=== PATIENT | male | born 1955 | race Caucasian/White ===

== ENCOUNTER 2018-04-16 08:17 | Inpatient (IN) | payer OTHER, SELFPAY ==
[2018-04-12 09:48] VITALS: BMI 32.2
[2018-04-16] VITALS (16 sets, daily range): BP systolic 115–143; BP diastolic 66–87; PULSE 62–80; RESP 10–20; TEMP 36.3–36.6; O2SAT 93–99; BMI 31.5; BMI 30.8
[2018-04-16] MEDS: LACTATED RINGERS 1,000 ML 42 ML IV ×3 (09:17→14:43)
[2018-04-16] MEDS: VANCOMYCIN 1,000 MG/200 ML FROZ.PIGGY 200 MG IV (09:19)
--- NOTE | 2018-04-16 09:26 | PM.PREOP ---
Pre-operative Note Interval Note History & Physical reviewed/Exam performed by Physician: Yes Changes to H&P: No
[2018-04-16] MEDS: CEFAZOLIN 2 GM/100 ML FROZ.PIGGY IV ×2 (10:25→21:25)
--- NOTE | 2018-04-16 10:28 | P.OP_ITS ---
Operative Date/Time/Diagnoses Date of procedure: 04/16/18 Time of procedure: 15:48 Pre-op diagnosis: Lumbar stenosis with radiculopathy history of lumbar laminectomy lumbar scoliosis Post-op diagnosis: same Procedure & Clinicians Procedure: L2-3, L3-4, L4-5 anterior fusion with cages L2-3, L3-4, L4-5 posterior fusion L2, L3, L4, L5 screws iliac crest bone graft aspirate L2-3, L4-5 laminectomies L3-4 revision laminectomy use of microscope placement of epidural catheter Same procedure as scheduled: Yes Indications: 62 year old male with intractable pain from stenosis. They had failed conservative management and requested operative intervention. Risks and benefits of surgery were discussed and appropriate consents were obtained. Surgeon: Michael Garcia Biomedical Instrument Technician: Aida Coelho Anesthesia Type: General Operative Notes Findings: none Closure Type: primary Specimen(s): none sent Prosthetic devices, grafts, tissues, transplants, or devices: NuVasive MAS and open Reline screws NuVasive XLIF screws Applied: catheter Estimated Blood Loss (mL): 50 Blood products transfused: none Procedure in detail: Patient was brought to the operating room and intubated on the table. Time-out was performed. They were then rolled over to the lateral decubitus position with the [id number]. The table was bent and they were taped down in the correct position. X-rays were taken to confirm a true AP and lateral. Preoperative antibiotics were given. The left flank was prepped and draped in standard sterile fashion. Using fluoroscopy, a 3 cm incision was made above the iliac crest. We bluntly dissected down with Metzenbaum scissors and split the 3 abdominal muscle layers. We dissected out the retroperitoneal space and using finger guidance, brought our 1st dilator down to the psoas muscle. Using neuromonitoring and fluoroscopy, we placed it through the psoas onto the L45 disc space in an anterior position and gradually pulled the dilator posteriorly along the disc space. We placed our guidewire and measured our depth for the retractor. We then dilated with the next 2 dilators and then placed our retractor over the dilators. Position was confirmed with fluoroscopy and the retractor was locked down to the bar. We opened up the retractor and checked with neuro monitoring. We then placed the tommie and again checked with neuro monitoring. The retractor was opened further and the ALL retractor was placed. He had what appeared to be a large sensory nerve crossing the anterior aspect of the disc space. This was probed with neuro monitoring and had no stimulus for motor testing. We carefully retracted it anteriorly until it was safely out of the way. An annulotomy was performed. We then performed a complete diskectomy with ring curette, pituitary, box osteotome. A Dunlap was advanced across the disc space under fluoroscopy to release the lateral annulus on the opposite side. We then used sequentially larger trials and confirmed under fluoroscopy. An XLIF cage was packed with Osteocell bone graft and impacted into the L45 disc space with fluoroscopy for the anterior fusion at this level. The wound was irrigated. The retractor was closed down. The tommie was removed. We carefully removed the retractor with direct visualization to make sure there was no neurovascular or abdominal injury. We then went up to L3-4 with our dilators and then placing a retractor. We again performed a complete diskectomy and lateral annular release at this level. We trialed and placed another cage packed with bone graft for the anterior fusion at L3-4. The retractor was carefully removed under direct visualization. Final x-rays were taken.The patient still had lateral listhesis and rotation and curvature at the L2-3 level. I felt with this still ongoing deformity, this needed to be corrected before we did a laminectomy at this level as well and we extended up to L2-3. We again placed our dilators and then opened up the retractor up at L2-3 with neural monitoring and fluoroscopy. A complete diskectomy with lateral annular release was performed. We trialed and placed another cage with bone graft for the anterior fusion at L2-3. We carefully closed and removed the retractor under direct visualization and final x-rays were taken. The muscle fascia was closed, superficial tissue was closed. The skin was closed. Sterile dressing was placed. The patient was then rolled over on the well-padded prone position on the Walter table. Using fluoroscopy for localization, a 15 cm incision was made in the midline utilizing his previous incision. We dissected down the right sided paraspinal muscles to expose the lamina and confirmed our position. We then exposed the transverse processes at the levels of fusion. We then began placing our screws. A bur was used to decorticate the junction of the facet and transverse process. We then advanced a gear shifter down the pedicle using neuro monitoring. We checked with the ball probe to confirm a floor and 4 srinivasan on the pedicle. We then tapped also with neuro monitoring. We checked again with the ball probe and then placed our screw with neuro monitoring. The screws were placed in this fashion down the right pedicles of L2, L3, L4, and L5. The kalyan was loosely placed and x-rays were taken to confirm positioning and then the set screws were locked down. We then brought in the microscope. A laminectomy was performed at L45 with a bur and Kerrison rongeurs. We carefully depressed the dura to reach to the opposite side and decompress the entire central canal. We cleared out the neural foramen. There was a large amount of scar tracking down along the L4 pedicle and into the facet and this was cleared out. In the end the ball probe could be placed cephalad and caudally across to the opposite side in the foramen and everything was opened. We then went up to L3-4. A revision right-sided laminotomy was performed with primarily a facetectomy at this level. We cleared through the scar tissue from his previous surgery until we could trace out the nerve root freely. We then went up to L2-3. Again, a right-sided laminectomy was performed at this level reaching across the midline and completely decompressing the central canal as well as the foramen. In the end everything was opened when checking with a ball probe. The wound was copiously irrigated. A small stab incision was made over the PSIS and a Jamshidi needle was placed into the iliac crest and several mL of bone marrow was aspirated. This was mixed with our locally harvested bone graft as well as the remaining Osteocell and placed in the posterolateral gutter for fusion at L23, L34, and L45. An epidural catheter was primed with 4mL of 0.5% bupivacaine, 100 mcg fentanyl, 4 mg Duramorph, 1 mg Stadol. The dura was depressed under the cephalad lamina with a ball probe and the epidural catheter was gently advanced 6 cm cephalad. The fascia was then closed. The epidural was then injected without resistance. The catheter was pulled and we closed more over the fascia. We then used fluoroscopy and made another 15 cm longitudinal incision on the left-hand side. We used the Bovie to come down to a split the lumbodorsal fascia. We then percutaneously placed Jamshidi needles down the left pedicles of L2, L3, L4, and L5 using fluoroscopy and neuro monitoring. We changed out the guidewires, tapped, and then placed our MAS screws. We placed a kalyan and locked down. Final x-rays were taken. The wound was irrigated. The fascia was closed. Vancomycin powder was placed in the wounds. The superficial and skin were closed. Sterile dressing was placed. The patient was then rolled over, extubated, brought to the recovery room with no complications. Complications: none Condition: stable Disposition: PACU Plan for aftercare: Inpatient. Up with PT.
--- NOTE | 2018-04-16 11:01 | SUR.OPER ---
Right lateral on padded OR table. Head on pillow, gel axillary roll, pillow to support left arm. Legs flexed, pillows between legs, gel pad under down leg and ankle. Multiple passes of 3 inch cloth tape across shoulder, hip, upper and lower legs to secure patient on OR table.
[2018-04-16] MEDS: SODIUM CHLORIDE 0.9% 1,000 ML, GENTAMICIN 80 MG IRR (11:08)
[2018-04-16] MEDS: VANCOMYCIN 1,000 MG VIAL 1000 MG TOP (12:58)
[2018-04-16] MEDS: THROMBIN (RECOMBINANT) 5,000 UNIT VIAL 5000 UNIT TOP (12:59)
[2018-04-16] MEDS: BUPIVACAINE 0.5% (PF) 4 ML, MORPHINE-PF 4 MG, BUTORPHANOL 1 MG, fentaNYL 100 MCG INJ (13:01)
--- NOTE | 2018-04-16 15:44 | DI.RAD.S_ITS ---
PROCEDURE: XR LUMBAR SPINE 2-3V INDICATIONS: L2-3, L3-4, L4-5 XLIF, POSTERIOR FUSION TECHNIQUE: 2 intraoperative fluoroscopic views of the lumbar spine were acquired. COMPARISON: None. FINDINGS: Intraoperative fluoroscopic images of lumbar spine shows transpedicular fusion at L2-L5 levels with intervertebral spacer placement at L2-3 through L4-5 levels. IMPRESSION: Fluoroscopy guidance was provided intraoperatively for posterior fusion at L2-L5 levels. Dictated by: Naren Tejeda M.D. on 04/16/2018 at 15:59 Approved by: Naren Tejeda M.D. on 04/16/2018 at 16:01
[2018-04-16] MEDS: fentaNYL 100 MCG/2 ML INJ 50 MCG IV ×2 (16:10→16:15)
[2018-04-16] MEDS: LORazepam 2 MG/ML SYRINGE 0.5 MG IV ×2 (16:15→16:22)
[2018-04-16] MEDS: HYDROMORPHONE 2 MG INJ 0.5 MG IV (16:20)
--- NOTE | 2018-04-16 16:30 | SUR.PHASEI ---
recieved report from Precious Sharma RN
[2018-04-16] MEDS: LACTATED RINGERS 1,000 ML 125 ML IV (17:13)
[2018-04-16] MEDS: DOCUSATE 100 MG CAPSULE PO (18:40)
[2018-04-16] MEDS: hydrOXYzine pamoate 25 MG CAPSULE PO ×2 (18:40→22:29)
[2018-04-16] MEDS: HYDROCODONE/ACET 5/325 TABLET 2 TAB PO ×2 (18:40→22:29)
[2018-04-16] MEDS: SENNOSIDES 8.6 MG TABLET 17.2 MG PO (18:41)
[2018-04-16] MEDS: METOCLOPRAMIDE 10 MG/2 ML INJ IV (18:47)
[2018-04-16] MEDS: GABAPENTIN 300 MG CAPSULE PO (21:36)
[2018-04-17] VITALS (7 sets, daily range): BP systolic 118–125; BP diastolic 63–72; PULSE 64–78; RESP 16–20; TEMP 36.6–38.4; O2SAT 91–100
[2018-04-17] MEDS: LACTATED RINGERS 1,000 ML 125 ML IV (01:19)
[2018-04-17] MEDS: HYDROCODONE/ACET 5/325 TABLET 2 TAB PO ×6 (02:24→23:38)
[2018-04-17] MEDS: CEFAZOLIN 2 GM/100 ML FROZ.PIGGY IV (04:11)
[2018-04-17 05:35] LABS: Hematocrit 38.2 % (41-53); Hemoglobin 12.8 g/dL (13.5-17.5)
[2018-04-17] MEDS: PANTOPRAZOLE 40 MG TABLET PO (06:24)
--- NOTE | 2018-04-17 08:06 | PM.PNPO.1 ---
Subjective Date Patient Seen: 04/17/18 Time Patient Seen: 08:06 Interval history: He is doing well. Pain is 2 to 3/10. Still numb in the anterior thighs but no more pain in the legs. Exam Vital Signs (past 8 hours): - 04/17/18 03:45 04/17/18 07:00 Temperature 98.6 F 100.8 F H Pulse Rate 75 71 Respiratory Rate 16 16 Blood Pressure 118/72 120/63 Pulse Oximetry 91 100 Oxygen Delivery Method Nasal Cannula Oxygen Flow Rate 2 Const Orientation: alert and oriented x3 Back/Spine/Pelvis Other: Mild drainage. 5/5 motor both lower extremities. Objective Labs Result Diagrams: 04/17/18 05:15 Labs: Laboratory Results - last 24 hr 04/17/18 05:15 Hgb 12.8 L Hct 38.2 L Assessment & Plan Post-op Postoperative Procedures Operation Date: 04/16/18 10:15 Actual Procedures Side Surgeon p L2-3,L3-4,L4-5 laminectomies,L3-4,L4-5 anterior/posterior instru fusion (XLIF) w/bone graft Michael Garcia MD He is doing very well. Continue to mobilize with physical therapy today. Anticipate discharge home tomorrow. Quality VTE Deep Vein Thrombosis/Pulmonary Embolism Present on Admission: No
[2018-04-17] MEDS: DOCUSATE 100 MG CAPSULE PO ×2 (08:08→20:22)
[2018-04-17] MEDS: hydrOXYzine pamoate 25 MG CAPSULE PO ×2 (08:09→23:46)
[2018-04-17] MEDS: LISINOPRIL 20 MG TABLET PO (08:09)
[2018-04-17] MEDS: CELECOXIB 200 MG CAPSULE PO ×2 (08:09→20:22)
--- NOTE | 2018-04-17 10:26 | PT.IIE ---
Current Diagnoses Other forms of scoliosis, lumbar region (04/16/18) Spinal stenosis, lumbar region with neurogenic claudication (04/16/18) Other intervertebral disc degeneration, lumbar region (04/16/18) Surgery Performed Operation Date: 04/16/18 10:15 Actual Procedures p L2-3,L3-4,L4-5 laminectomies,L3-4,L4-5 anterior/posterior instru fusion (XLIF) w/bone graft - Michael Garcia MD Surgical History (Last Updated 04/12/18 @ 10:25 by Edwina Norris RN) History of carpal tunnel surgery of right wrist (Acute) Hx of laminectomy (Acute ~2016) Hx of tonsillectomy (Acute) S/P cervical spinal fusion (Acute) S/P foot surgery, left (Acute) Medical History (Last Updated 04/12/18 @ 10:27 by Edwina Norris RN) Acid reflux (Acute) Arthritis (Acute) Asthma (Acute) BCC (basal cell carcinoma) (Acute) Lee's esophagus (Acute) First degree AV block (Acute) Generalized headaches (Acute) HTN (hypertension) (Acute) Hearing impaired (Acute) Low back pain with sciatica (Acute) Numbness (Acute) PVC's (premature ventricular contractions) (Acute) Parotid cyst (Acute) Pneumonia (Acute) RBBB (Acute) Renal cyst (Acute) Rupture of left biceps tendon (Acute) Physical Therapy Inpatient Evaluation/Re-Eval M1 PT/OT-IP Prior Functional Status Start: 04/17/18 13:06 Freq: NEEDED Status: Active Protocol: Document 04/17/18 10:26 AB (Rec: 04/17/18 13:29 AB [id number]) Medical Review Prior Functional Status Medical History Reviewed Yes Communication able to make needs known Mobility and Gait stated that he is independent with all mobilities and ambulation without AD Social History Household Members spouse children Living Arrangements House Number of Floors (Floors) Two Floors Number of Stairs To Enter/Railing? 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 PT-IP Current Condition Start: 04/17/18 13:06 Freq: NEEDED Status: Active Protocol: Document 04/17/18 10:26 AB (Rec: 04/17/18 13:29 AB [id number]) Physical Therapy Current Condition Current Condition Evaluation Date 04/17/18 Treatment Diagnosis s/p L2-3, 3-4, 4-5 ant/post fusion/lami; difficulty in walking Onset Date 04/16/18 Precautions Lumbar Precautions Log Roll No Twisting Limit Bending Lifting Restriction of 10 lbs Gait Belt above Incisional Area M3 PT-IP Subjective Start: 04/17/18 13:06 Freq: NEEDED Status: Active Protocol: Document 04/17/18 10:26 AB (Rec: 04/17/18 13:29 AB [id number]) Subjective Physical Therapy Visit Type Type Initial Evaluation Visit Start Time 10:26 Visit Stop Time 11:12 Total Visit Minutes 46 Number of RESEARCH CLERK Visits 0 Physical Therapy Visit Comments Patient Comments pt agreeable to do PT Therapy Pain Assessment Pain When Pain Assessed At Rest Pain Present Pain Present Pain Reported Location back Intensity 5 Pain Management Techniques Apply Cold Re-positioning Timing of Activity with Medications M4 PT-IP Mobility and Gait Start: 04/17/18 13:06 Freq: NEEDED Status: Active Protocol: Document 04/17/18 10:26 AB (Rec: 04/17/18 13:29 AB [id number]) PT-Bed Mobility Assessment Rolling Type of Rolling Log Rolling Level of Assist Standby Assistance Supine to Sit Supine to Sit Standby Assistance Scooting Scooting to Edge of Bed Standby Assistance PT-Transfer Assessment Sit to and From Stand Sit to and from Stand Moderate Assistance 1 Person Assistance Equipment Transfer Assistive Device Gait Belt Front Wheeled Walker Orthotic/Prosthetic Devices or Brace: No Transfers Transfer Destination Chair Transfer Technique Stand Step Pivot Transfer Ability Level of Assist Minimal Assistance 1 Person Assistance Use of Upper Extremities Comments Mobility Comments pt completed sit <>stand x 3 reps with mod A and max cues for techniques Gait Assessment Gait Gait Assistance Required: Minimum Assistance Distance (Feet) 75 Able to Maintain Weight Bearing Status Yes During Gait Assistive Devices Assistive Device Gait Belt Front Wheeled Walker Orthotic/Prosthetic Devices or Brace: No Gait Deviations General Gait Pattern Decreased Stride Length Decreased Feet Clearance Factors Limiting Gait Function Factors Limiting Gait Function Decreased Activity Tolerance Decreased Strength Limited Range of Motion Pain Poor Balance Poor Safety Awareness PT-Balance Assessment Sitting Balance and Reactions Static Sitting Balance Ability Good Dynamic Sitting Balance Ability Good Standing Balance and Reactions Static Standing Balance Ability Fair Dynamic Standing Balance Ability Fair Device Used FWW M5 PT-IP Objective Assessments Start: 04/17/18 13:06 Freq: NEEDED Status: Active Protocol: Document 04/17/18 10:26 AB (Rec: 04/17/18 13:29 AB [id number]) Orientation Orientation/Cognition Level of Alertness Alert Orientation Name Age Birthday Place Situation Safety Awareness Understands Safety Issues Memory Description Short Term Impaired Gross Range of Motion Lower Extremity ROM Assessment Within Functional Limits Strength Lower Extremity Strength Assessment Right Impaired Knee 4-/5 Coordination Assessment Gross Coordination Gross Coordination WNL Sensation Assessment Sensation Gross Sensation WNL Muscle Tone Muscle Tone WNL Yes M6 PT-IP Treatment Start: 04/17/18 13:06 Freq: NEEDED Status: Active Protocol: Document 04/17/18 10:26 AB (Rec: 04/17/18 13:29 AB [id number]) Physical Therapy Treatment Education Education Provided Precautions Weight Bearing Status Post-Op Packet Safety M7 PT-IP Assessment and Plan Start: 04/17/18 13:06 Freq: NEEDED Status: Active Protocol: Document 04/17/18 10:26 AB (Rec: 04/17/18 13:29 AB [id number]) PT Summary Assessment and Plan Potential Rehabilitation Potential Good Status of Condition at Evaluation Stable Summary Impairments Pain ROM Strength Balance Coordination Sensation Tone Cognition Bed Mobility Transfers Gait Activity Tolerance Assessment Summary pt requiring on person assist with mobility. pt plans to go home with spouse to assist him . will conduct caregiver training and stair climbing training prior to d/c. Goals Bed Mobility Goal Independent Transfer Goal Standby Assistance Front Wheeled Walker Gait Goal Standby Assistance Front Wheel Walker Gait Distance 200 Other Goals up/down 2 steps without rails FWW CGA Days to Meet Goals 3 Frequency of Treatment Frequency Of Treatment Twice a Day Treatment Plan Physical Therapy Treatment Plan Bed Mobility Training Transfer Training Gait Training Therapeutic Exercise Balance Retraining Post Op Education Discharge Planning Hot or Cold Pack Neuromuscular Re-ed Coordination Retraining Manual Therapy Other Recommendations and Next Treatment caregiver training, bed Focus mobility, transfers, ambulation Recommendations To Nursing Amount of Assist Needed 1 Person Assist Discharge Recommendations PT Discharge Recommendations Home with Assistance
--- NOTE | 2018-04-17 11:33 | PC.NURSE ---
day shift note Assumed pt care at 0700. Fluids stopped and saline locked. pt a/ox3, having pain at incision site 05/15. [place] given at 1030 before working with PT. dressing clean and intact with small amt of drainage. Pt up SBA with FWW ambulating in hallway and up to chair. John catheter removed at 1100. at bedside, no other complains at this time. Care continues.
--- NOTE | 2018-04-17 13:00 | PC.NURSE ---
Pts lehman taken out at 1100. Pt into the bathroom and has not been able to urinate at this time. Given 2 vicodin earlier and helpful. Pt up to chair and sat for an hour and tolerated well. Worked with Physical Therapy and was able to ambulate in the room. Pts visiting and they are visiting now.
[2018-04-17] MEDS: diphenhydrAMINE 25 MG TABLET PO ×2 (13:51→20:26)
--- NOTE | 2018-04-17 14:49 | CM.DANOTE ---
Patient is a 62 year old male who was admitted on 04/16/18 for Lumbar Surgery. Pt has [email or web address] for insurance and his PCP is Dr. Reynold Sargent. EMR was reviewed. Per Ortho MD, pt making good progress and likely home tomorrow if stable after further PT. Per PT, recommending safe d/c home with spouse assist after further CG training. 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 Pt does not anticipate any SW needs at d/c and preference is home. Plan: SW to follow after further PT and CG training to confirm pt safe for d/c home with spouse assist when medically stable. QASIM Parker Discharge Planning/Care Management CM Discharge Assessment Start: 04/17/18 14:47 Freq: Status: Active Protocol: Document 04/17/18 14:47 BF (Rec: 04/17/18 14:49 BF [id number]) Discharge Planning Assessment Assigned Computer Specialist QASIM Blunt Advance Directives? No: Declines further information Advance Directives on File No History Provided By Patient Family Member Medical Record Has Patient been admitted in last 30 No days? 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 Independent with ADL's Yes Is patient alert and oriented? Yes Caregiver for Another No Comment Likely home with family assist when stable Barriers to Discharge No Discharge Plan Home Transportation Arrangement Spouse can likely provide transport home when stable Referrals Initiated None needed Review Status In Process Please Provide Date Initial DC 04/17/18 Assessment Was Performed Next Review Type Continued Stay Review Pre-Anesthesia Assessment Start: 04/12/18 09:48 Freq: Status: Complete Protocol: Document 04/12/18 09:48 CAB (Rec: 04/12/18 10:45 CAB [id number]) Pre-Anesthesia Assessment Patient Also Known As Tinajero (AKA) Patient Information Reviewed Via Phone Assessment Assessment Completed With Patient Diagnostic Results BMP/CMP CBC EKG Comment Outside labs, ECG scanned to record Primary Care Provider Reynold Sargent Medical Clearance Received Yes Seen Specialist in Last 12 Months Yes Specialist Seen Orthopedist Comment PCP clearance scanned to record Primary Language Croatian Hand Cigar Making Supervisor Required No Height 187.96 cm Weight 113.852 kg Body Mass Index (BMI) 32.2 Hearing Ability Hard of Hearing Use of Hearing Aid Visual Assist Contacts Glasses Barriers to Learning None Other Aids No Hx Anesthesia Reactions Yes: Violent w/parotid cyst removal age 19 Hx Family Anesthesia Reaction No Hx Malignant Hyperthermia No Hx Blood Transfusions No Anesthesia Review Requested No Tankage Supervisor No alcohol intake current alcohol intake frequency 0-2 drinks per day Smoking Status Former smoker Tobacco type cigarettes how long ago did patient quit smoking Quit approx Substance Use Type does not use Pain Present Pain Reported Musculoskeletal Symptoms Abnormal Gait Back Pain Difficulty Walking Joint Pain Limited Range of Motion Muscle Weakness Numbness Radiating Pain into Limb History of Falling (Recent or History of No ) Patient is completely paralyzed or No completely immobile Mental Status Oriented to own ability Is patient on oxygen? No Does patient have HERRERA/SOB No: Occasional r/t Asthma Hx Sleep Apnea No Currently Taking a Beta Anselmo No Can You Climb a Flight of Stairs Without Yes SOB Hx Chest Pain No Hx SOB Yes: Occasional r/t Asthma Hx Syncope or Dizziness No Anti-Coagulant Therapy No Has a Painter Foreman No Cardiac Testing No Hx Pacemaker/ICD No Pacemaker Rep Required? No Cardiac Clearance Received Not Applicable Diet Type At Home Regular dysphagia No Bladder Pattern Frequency Nocturia Urgency Urinary Catheter Present No Hx Urinary Self Catheterization No Diabetes No Hx Drug Resistant Organism Yes: MRSA + back r/t BCC 2017 Presence of External or Internal Medical No Devices Have you traveled outside the [facility] in the last 30 days? Marital Status Lives With spouse children Prior Living Arrangements House Number of Floors (Floors) Two Floors Number of Stairs To Enter/Railing? 2 steps in garage into house Support System Spouse Does the Patient Have Assistance After Yes Surgery Patient Discharge Plan Description Return Home Comment Pt advised 2-4 day length of stay per surgeon's office Feels Safe in Current Environment Yes Been Physically Hurt or Threatened By a No Person in Current Environment Do you have thoughts of harming yourself None or others? Are you currently considering suicide? No Do you have a plan to hurt yourself or No Plan others? Do You Have Any Spiritual Beliefs That No May Affect Your HC Choices? Do You Have Any Cultural Practices That No May Affect Your HC Choices? Spiritual Referral None Comment Congregation Who Can We Speak to About Patient's Care Family, friends Identifying Code for Release of Patient Declines to issue Information Health Care Proxy/Next of Kin Quiana () Health Care Proxy Emergency Contact Name Quiana () Emergency Contact Advance Directives? No: Declines further information Advance Directives on File No PAC Instructions Do not shave/clip surgical site Durable medical equipment Medications to take/avoid Nasal antibiotic No ETOH/petroleum product on skin DOS NPO Post-op transportation Pre-surgical wash Sensory aids Sturdy shoes/comfortable clothes Do not bring valuables and remove jewelry
--- NOTE | 2018-04-17 16:07 | PT.IPTN ---
Current Diagnoses Other forms of scoliosis, lumbar region (04/16/18) Spinal stenosis, lumbar region with neurogenic claudication (04/16/18) Other intervertebral disc degeneration, lumbar region (04/16/18) Surgery Performed Operation Date: 04/16/18 10:15 Actual Procedures p L2-3,L3-4,L4-5 laminectomies,L3-4,L4-5 anterior/posterior instru fusion (XLIF) w/bone graft - Michael Garcia MD Physical Therapy Treatment Note M2 PT-IP Current Condition Start: 04/17/18 13:06 Freq: NEEDED Status: Active Protocol: Document 04/17/18 10:26 AB (Rec: 04/17/18 13:29 AB [id number]) Physical Therapy Current Condition Current Condition Evaluation Date 04/17/18 Treatment Diagnosis s/p L2-3, 3-4, 4-5 ant/post fusion/lami; difficulty in walking Onset Date 04/16/18 Precautions Lumbar Precautions Log Roll No Twisting Limit Bending Lifting Restriction of 10 lbs Gait Belt above Incisional Area M3 PT-IP Subjective Start: 04/17/18 13:06 Freq: NEEDED Status: Active Protocol: Document 04/17/18 15:50 SA (Rec: 04/17/18 16:07 SA [id number]) Subjective Physical Therapy Visit Type Type Treatment Note Visit Start Time 14:50 Visit Stop Time 15:15 Total Visit Minutes 25 Number of WIND PLANT MANAGER Visits 1 Physical Therapy Visit Comments Patient Comments Pt agreeable to PT. Patient Goals To go home with . Therapy Pain Assessment Pain When Pain Assessed At Rest Pain Present Pain Present Pain Reported Location back Intensity 5 Scale Used Numeric (1 - 10) Pain Management Techniques Apply Cold Re-positioning Timing of Activity with Medications M4 PT-IP Mobility and Gait Start: 04/17/18 13:06 Freq: NEEDED Status: Active Protocol: Document 04/17/18 15:50 SA (Rec: 04/17/18 16:07 SA [id number]) PT-Bed Mobility Assessment Rolling Type of Rolling Log Rolling Roll to Right Level of Assist Standby Assistance Supine to Sit Supine to Sit Standby Assistance Sit to Supine Sit to Supine Standby Assistance Scooting Scooting to Edge of Bed Standby Assistance Scooting Up and Down in Bed Standby Assistance PT-Transfer Assessment Sit to and From Stand Sit to and from Stand Contact Guard Assistance Minimal Assistance 1 Person Assistance Equipment Transfer Assistive Device Gait Belt Front Wheeled Walker Orthotic/Prosthetic Devices or Brace: No Transfers Transfer Destination Bed Chair Transfer Technique Stand Step Pivot Transfer Ability Level of Assist Contact Guard Assistance 1 Person Assistance Use of Upper Extremities Comments Mobility Comments Review and practice of Log roll technique wit SBA and Mod cues, increased time to perform. Repeated sit to stands with CGA and mod cues for neutral spine and UE use. present for PT. Gait Assessment Gait Gait Assistance Required: Contact Guard Assist 1 Person Assist Distance (Feet) 100 Able to Maintain Weight Bearing Status Yes During Gait Assistive Devices Assistive Device Gait Belt Front Wheeled Walker Orthotic/Prosthetic Devices or Brace: No Gait Deviations General Gait Pattern Decreased Stride Length Decreased Feet Clearance Flexed Trunk Factors Limiting Gait Function Factors Limiting Gait Function Decreased Activity Tolerance Decreased Strength Limited Range of Motion Pain Poor Balance Poor Safety Awareness Comments Gait Comments Gait training with CGA and FWW x 100 feet, cues for upright posture and continueation of gait. Pt receptive to cues and able to correct and improve gait. Stair Climbing Assessment Evaluation Level of Assist On Stairs Contact Guard Assistance Devices Stair Climbing Assistive Devices Front Wheel Walker Technique/Endurance Stair Climbing Direction Ascend and Descend Stair Climbing Technique Step to Step Number of Steps Climbed 3 Query Text: Stair Climbing Set # Repetitions (reps) 1 Comments Stair Climbing Comments Pt cued to lead up with stron leg and down with weak, no LOB and step to gait pattern. Pt safe but relies heavily on UEs through FWw. M5 PT-IP Objective Assessments Start: 04/17/18 13:06 Freq: NEEDED Status: Active Protocol: Document 04/17/18 10:26 AB (Rec: 04/17/18 13:29 AB [id number]) Orientation Orientation/Cognition Level of Alertness Alert Orientation Name Age Birthday Place Situation Safety Awareness Understands Safety Issues Memory Description Short Term Impaired Gross Range of Motion Lower Extremity ROM Assessment Within Functional Limits Strength Lower Extremity Strength Assessment Right Impaired Knee 4-/5 Coordination Assessment Gross Coordination Gross Coordination WNL Sensation Assessment Sensation Gross Sensation WNL Muscle Tone Muscle Tone WNL Yes M6 PT-IP Treatment Start: 04/17/18 13:06 Freq: NEEDED Status: Active Protocol: Document 04/17/18 15:50 SA (Rec: 04/17/18 16:07 SA [id number]) Physical Therapy Treatment Exercises Exercises Ankle Pumps Gluteal Sets Education Education Provided Precautions Weight Bearing Status Post-Op Packet Safety M7 PT-IP Assessment and Plan Start: 04/17/18 13:06 Freq: NEEDED Status: Active Protocol: Document 04/17/18 15:50 SA (Rec: 04/17/18 16:07 SA [id number]) PT Summary Assessment and Plan Summary Impairments Pain ROM Strength Balance Coordination Sensation Tone Cognition Bed Mobility Transfers Gait Activity Tolerance Assessment Summary Pt progressing well with mobility tasks, aware of spinal precautions and present for caregiver training . Recommendations To Nursing Amount of Assist Needed 1 Person Assist Discharge Recommendations PT Discharge Recommendations Home with Assistance
--- NOTE | 2018-04-17 16:15 | OT.IP.EVAL ---
Current Diagnoses Other forms of scoliosis, lumbar region (04/16/18) Spinal stenosis, lumbar region with neurogenic claudication (04/16/18) Other intervertebral disc degeneration, lumbar region (04/16/18) Surgery Performed Operation Date: 04/16/18 10:15 Actual Procedures p L2-3,L3-4,L4-5 laminectomies,L3-4,L4-5 anterior/posterior instru fusion (XLIF) w/bone graft - Michael Garcia MD Past Medical History (Last Updated 04/12/18 @ 10:27 by Edwina Norris RN) Acid reflux (Acute) Arthritis (Acute) Asthma (Acute) BCC (basal cell carcinoma) (Acute) Lee's esophagus (Acute) First degree AV block (Acute) Generalized headaches (Acute) HTN (hypertension) (Acute) Hearing impaired (Acute) Low back pain with sciatica (Acute) Numbness (Acute) PVC's (premature ventricular contractions) (Acute) Parotid cyst (Acute) Pneumonia (Acute) RBBB (Acute) Renal cyst (Acute) Rupture of left biceps tendon (Acute) Surgical History (Last Updated 04/12/18 @ 10:25 by Edwina Norris RN) History of carpal tunnel surgery of right wrist (Acute) Hx of laminectomy (Acute ~2016) Hx of tonsillectomy (Acute) S/P cervical spinal fusion (Acute) S/P foot surgery, left (Acute) Occupational Therapy Inpatient Evaluation/Re-Eval M1 PT/OT-IP Prior Functional Status Start: 04/17/18 13:06 Freq: NEEDED Status: Active Protocol: Document 04/17/18 16:15 MAX (Rec: 04/17/18 16:37 PJM [id number]) Medical Review Prior Functional Status Medical History Reviewed Yes Diet/Fluid Consistency Regular Communication WNL Mobility and Gait Pt independent with all mobilities and ambulation without AD, but noticed LLE weakness when climbing ladders as needed for his job. Activities of Daily Living and IADL's Pt independent with all self care. 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 Pt has 2 small children ages 3 and 5 yrs old. Both go to day care/school while works. Prior Functional Level (Other details) Supportive capable will take a few days off work to assist pt. Social History Household Members spouse children Living Arrangements House Number of Floors (Floors) Two Floors Number of Stairs To Enter/Railing? 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 M2 OT-IP Current Condition Start: 04/17/18 16:23 Freq: Status: Active Protocol: Document 04/17/18 16:15 PJM (Rec: 04/17/18 16:37 PJ [id number]) Occupational Therapy Current Condition Current Condition Evaluation Date 04/17/18 Treatment Diagnosis decreased self care, mobility s/p L2-5 lami , L3-5 ant/ posterior XLIF Post Operative Precautions Lumbar Precautions Log Roll No Twisting Limit Bending Lifting Restriction of 10 lbs Gait Belt above Incisional Area M3 OT- IP Subjective and Pain Start: 04/17/18 16:23 Freq: Status: Active Protocol: Document 04/17/18 16:15 PJM (Rec: 04/17/18 16:37 PJM [id number]) OT- Subjective Occupational Therapy Visit Type Type Initial Evaluation Visit Start Time 15:29 Visit Stop Time 16:15 Total Visit Minutes 46 Notes Pt's here for education this session. Occupational Therapy Visit Comments Patient Comments I want to walk to help me have a bowel movement. 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 OT Pain Assessment Pain When Pain Assessed After Treatment Pain Present Pain Present Pain Reported Location back Intensity 4 Scale Used Numeric (1 - 10) Description Aching Acute Pain Behaviors Facial Grimacing Guarding Management Techniques Apply Cold Distraction Re-positioning Timing of Activity with Medications M4 OT- IP ADL's Start: 04/17/18 16:23 Freq: Status: Active Protocol: Document 04/17/18 16:15 PJM (Rec: 04/17/18 16:37 PJ [id number]) OT [id number]-[id number] General Evaluation Self-Feeding Ability Independent OT ADL-Grooming Comments OT Grooming Comments did not occur this session; to be assessed OT ADL-Oral Care Comments Oral Care Comments did not occur this session; to be assessed OT ADL-Dressing General Eval Upper Body Dressing Ability Standby Assistance Lower Body Dressing Ability Maximum Assistance Areas Needing Assistance Underpants/Brief Socks Shoes Assistive Devices Dressing Assistive Devices Long Handled Shoe Horn Operations Officer Afloat Sock Aid Comments OT Dressing Comments Began education with pt/ re: lower body dressing with quality improvement coordinator, sock aid, long shoe horn with emphasis on lumbar spine precautions. Provided all equipt at pt request. OT ADL-Toileting General Evaluation Toileting Ability Standby Assistance Areas Needing Assistance Manage Clothing Perform Perineal Hygiene Comments OT Toileting Comments Provided education re: body mechanics. OT ADL-Bathing Comments OT Bathing Comments to be assessed M5 OT- IP IADL's Start: 04/17/18 16:23 Freq: Status: Active Protocol: Document 04/17/18 16:15 PJM (Rec: 04/17/18 16:37 [facility] [id number]) OT-Instrumental Activities of Daily Living Deficits IADL Deficits Identified Deficits Home Safety Awareness Awareness of Need for Assistance at Home Good Awareness Ability to Problem Solve Emergency Able to Problem Solve Situations Medication Management Medication Management No Deficits Identified Money Management Money Management No Deficits Identified Meal Preparation Meal Preparation Caregiver Provides Assist Meal Preparation Comments to assist PRN Jewelry Racker Jewelry Racker Caregiver Provides Assist Jewelry Racker Comments to assist PRN Driving Driving Caregiver Provides Assist Driving Comments to assist until pt able M6 OT- IP Functional Cognition Start: 04/17/18 16:23 Freq: Status: Active Protocol: Document 04/17/18 16:15 PJM (Rec: 04/17/18 16:37 [facility] [id number]) Cognitive Factors Limiting Selfcare Function Cognitive Ability Level of Alertness Alert Patient Orientation Name Age Birthday Month Date Year Day of Week Place Situation Attention Span Ability Capable of Focused Attention Capable of Sustained Attention Ability to Follow Commands Able to Follow One Step Commands Able to Follow Multi-Step Commands Memory Description No Deficits Noted Safety Awareness No Deficits Noted Problem Solving Ability No deficits Noted Executive Function Ability No Deficits Noted Cognitive Comments Cognitive Assessment Comments WNL OT- Vision and Hearing OT- Hearing Assessment OT- Hearing Assessment WFL OT- Vision Assessment Visual Acuity WFL Vision Assessment Comments pt denies any recent changes M7 OT- IP Mobility and Balance Start: 04/17/18 16:23 Freq: Status: Active Protocol: Document 04/17/18 16:15 PJM (Rec: 04/17/18 16:37 [facility] [id number]) OT-Transfer Assessment Sit to and From Stand Sit to and from Stand Contact Guard Assistance 1 Person Assistance Transfers Transfer Ability Standby Assistance 1 Person Assistance Technique Transfer Destination Chair Toilet Transfer Technique Stand Step Pivot Devices Transfer Assistive Devices Gait Belt Front Wheeled Walker OT- Gait Assessment Gait Gait Assistance Required: Standby Assistance Distance (Feet) 130 Assistive Devices Assistive Device Gait Belt Front Wheeled Walker Comments Gait Ability Comments Pt requesting to walk this session to stimulate bowels. OT- Balance Assessment Sitting Balance and Reactions Static Sitting Balance Ability Good Dynamic Sitting Balance Ability Good Standing Balance and Reactions Static Standing Balance Ability Good Dynamic Standing Balance Ability Good Comments Other Balance Tests/Deviations/Treatment with FWW during toileting and : clothing management M8 OT- IP Objective Assessments Start: 04/17/18 16:23 Freq: Status: Active Protocol: Document 04/17/18 16:15 PJM (Rec: 04/17/18 16:37 PJM [id number]) OT Gross Range of Motion Upper Extremity Range of Motion Assessment Within Functional Limits OT Strength Upper Extremity Strength Assessment Within Functional Limits Hand Warranty Coordinator Strength Hand Dominance Right OT- Coordination Assessment Upper Extremity Finger to Nose Test Within Functional Limits Finger Tapping Test Within Functional Limits Comments Coordination Comments BUE WNL OT-Muscle Tone Assessment Muscle Tone WNL Yes OT Sensation Assessment Comments Summary Comments BUE WNL per pt Edema Edema Absent M9 OT- IP Assessment and Plan Start: 04/17/18 16:23 Freq: Status: Active Protocol: Document 04/17/18 16:15 PJM (Rec: 04/17/18 16:37 PJM [id number]) OT Summary Assessment and Plan Potential Rehabilitation Potential Excellent Analytic Complexity at Evaluation Low Summary OT Impairments Pain Functional Mobility Grooming Bathing Shower Transfers Assessment Summary Low complexity OT assessment completed with emphasis on lumbar spine precautions. Began education with pt/ re: precautions, posture, body mechanics, optimal chair selection, adapted ADL techniques, equipt options. They verbalize and demonstrate understanding of all education thus far. Pt moving well with pain well controlled this session. Plan one additional OT visit in AM for shower, grooming and further dressing practice as pt will be home alone next week while works. Pt hopes to d/c home tomorrow. Goals Grooming Goal Independent Dressing Goal Independent Long Handled Shoe Horn Operations Officer Afloat Sock Aid Bathing Goal Standby Assistance Long Handled Sponge or [place]lach Shower Transfer Goal Standby Assistance Patient/Caregiver Education Goal Demonstrate Post-Op Precautions Demonstrate Energy Conservation and Pacing Caregiver Independent Assisting Patient Days to Meet Goals 1 Frequency of Treatment Frequency Of Treatment Once a Day Treatment Plan OT Treatment Plan ADL Training Functional Mobility Patient/Family Education Discharge Planning Discharge Recommendations OT Discharge Recommendations Home with Assistance Home Equipment Needs provided quality improvement coordinator, sock aid, long shoe horn, long bath sponge
[2018-04-17] MEDS: MAGNESIUM HYDROXIDE 30 ML UDC PO (18:18)
[2018-04-17] MEDS: GABAPENTIN 300 MG CAPSULE PO (20:22)
[2018-04-17] MEDS: SENNOSIDES 8.6 MG TABLET 17.2 MG PO (20:22)
[2018-04-18] VITALS (7 sets, daily range): BP systolic 100–131; BP diastolic 51–76; PULSE 65–86; RESP 16–18; TEMP 36.5–37.1; O2SAT 95–97
--- NOTE | 2018-04-18 | DI.RAD.S_ITS ---
PROCEDURE: XR KUB INDICATIONS: abdominal distention TECHNIQUE: One view of the abdomen acquired. COMPARISON: [facility], CR, XR LUMBAR SPINE 2-3V, 04/16/2018, 9:45. FINDINGS: Surgical changes and devices: None. Bowel: Colon loops are mildly distended measuring up to 6.8 cm in diameter. There is paucity of distal colonic gas and small bowel gas. There are phleboliths in transverse colon and right lower quadrant. Soft tissues: No suspicious abdominal calcifications. Visualized solid organ contours appear normal in size. Bones: There is lumbar spine discectomy and posterior fusion. No suspicious bony lesions. IMPRESSION: Distal chronic obstructive versus ileus. Dictated by: Charbel Miguel M.D. on 04/18/2018 at 10:10 Approved by: Charbel Miguel M.D. on 04/18/2018 at 10:15
[2018-04-18] MEDS: PANTOPRAZOLE 40 MG TABLET PO (05:52)
[2018-04-18] MEDS: HYDROCODONE/ACET 5/325 TABLET 2 TAB PO (05:52)
[2018-04-18] MEDS: hydrOXYzine pamoate 25 MG CAPSULE PO (05:53)
--- NOTE | 2018-04-18 08:00 | PM.PNPO.1 ---
Subjective Date Patient Seen: 04/18/18 Time Patient Seen: 08:00 Interval history: He is having more pain today. His biggest complaint is abdominal bloating. He feels full of gas. He did have 2 very minute bowel movements but has not been passing any gas. Pain is about a 6 to 7/10. Still same numbness in the left anterior thigh but getting better on the right. No pain in the legs. Exam Vital Signs (past 8 hours): - 04/18/18 04:29 Temperature 97.7 F Fraction of Inspired Oxygen 21 Oxygen Delivery Method Room Air Oxygen Flow Rate 0 Const Orientation: alert and oriented x3 GI Inspection: distended Percussion: tympanic to percussion Back/Spine/Pelvis Other: moderate drainage. 5/5 motor both lower extremities. Objective Labs Result Diagrams: 04/17/18 05:15 Assessment & Plan Post-op Postoperative Procedures Operation Date: 04/16/18 10:15 Actual Procedures Side Surgeon p L2-3,L3-4,L4-5 laminectomies,L3-4,L4-5 anterior/posterior instru fusion (XLIF) w/bone graft Michael Garcia MD He may have some ileus. I want him to continue to get up and mobilize. We discussed bowel care with nursing. I will order a KUB. If this clears and he is doing better, could possibly go home today but more likely tomorrow. Quality VTE Deep Vein Thrombosis/Pulmonary Embolism Present on Admission: No
[2018-04-18] MEDS: OXYCODONE IR 10 MG TABLET PO ×4 (09:23→21:28)
[2018-04-18] MEDS: CELECOXIB 200 MG CAPSULE PO (09:23)
[2018-04-18] MEDS: LISINOPRIL 20 MG TABLET PO (09:23)
[2018-04-18] MEDS: DOCUSATE 100 MG CAPSULE PO ×2 (09:23→21:28)
[2018-04-18] MEDS: BISACODYL 10 MG SUPP PR (09:23)
--- NOTE | 2018-04-18 09:49 | PT.IPTN ---
Current Diagnoses Other forms of scoliosis, lumbar region (04/16/18) Spinal stenosis, lumbar region with neurogenic claudication (04/16/18) Other intervertebral disc degeneration, lumbar region (04/16/18) Surgery Performed Operation Date: 04/16/18 10:15 Actual Procedures p L2-3,L3-4,L4-5 laminectomies,L3-4,L4-5 anterior/posterior instru fusion (XLIF) w/bone graft - Michael Garcia MD Physical Therapy Treatment Note M2 PT-IP Current Condition Start: 04/17/18 13:06 Freq: NEEDED Status: Active Protocol: Document 04/17/18 10:26 AB (Rec: 04/17/18 13:29 AB [id number]) Physical Therapy Current Condition Current Condition Evaluation Date 04/17/18 Treatment Diagnosis s/p L2-3, 3-4, 4-5 ant/post fusion/lami; difficulty in walking Onset Date 04/16/18 Precautions Lumbar Precautions Log Roll No Twisting Limit Bending Lifting Restriction of 10 lbs Gait Belt above Incisional Area M3 PT-IP Subjective Start: 04/17/18 13:06 Freq: NEEDED Status: Active Protocol: Document 04/18/18 09:49 AB (Rec: 04/18/18 12:32 AB [id number]) Subjective Physical Therapy Visit Type Type Treatment Note Visit Start Time 09:49 Visit Stop Time 10:29 Total Visit Minutes 40 Number of BLEACH BOILER PULLER Visits 0 Physical Therapy Visit Comments Patient Comments pt agreeable to do PT Therapy Pain Assessment Pain When Pain Assessed At Rest Pain Present Pain Present Pain Reported Location back Intensity 5 Scale Used Numeric (1 - 10) Description Pulling Pain Management Techniques Apply Cold Re-positioning Timing of Activity with Medications M4 PT-IP Mobility and Gait Start: 04/17/18 13:06 Freq: NEEDED Status: Active Protocol: Document 04/18/18 09:49 AB (Rec: 04/18/18 12:32 AB [id number]) PT-Bed Mobility Assessment Rolling Type of Rolling Log Rolling Level of Assist Standby Assistance Supine to Sit Supine to Sit Standby Assistance Sit to Supine Sit to Supine Independent Scooting Scooting to Edge of Bed Standby Assistance Scooting Up and Down in Bed Standby Assistance PT-Transfer Assessment Sit to and From Stand Sit to and from Stand Minimal Assistance 1 Person Assistance Equipment Transfer Assistive Device Gait Belt Front Wheeled Walker Orthotic/Prosthetic Devices or Brace: No Transfers Transfer Destination Bed Transfer Technique Stand Step Pivot Transfer Ability Level of Assist Standby Assistance Contact Guard Assistance Comments Mobility Comments Pt completed sit <>stand from the chair x 8 reps and from EOB x 5 reps. initially requiring min A. educated on techniques and pt was able to complete with CGA after a few reps. caregiver training conducted with spouse. educated on how to use safety belt and how to assist pt. spouse was able to put safety belt on pt and assisted pt with sit<> stand transfers and bed mobility. M5 PT-IP Objective Assessments Start: 04/17/18 13:06 Freq: NEEDED Status: Active Protocol: Document 04/17/18 10:26 AB (Rec: 04/17/18 13:29 AB [id number]) Orientation Orientation/Cognition Level of Alertness Alert Orientation Name Age Birthday Place Situation Safety Awareness Understands Safety Issues Memory Description Short Term Impaired Gross Range of Motion Lower Extremity ROM Assessment Within Functional Limits Strength Lower Extremity Strength Assessment Right Impaired Knee 4-/5 Coordination Assessment Gross Coordination Gross Coordination WNL Sensation Assessment Sensation Gross Sensation WNL Muscle Tone Muscle Tone WNL Yes M6 PT-IP Treatment Start: 04/17/18 13:06 Freq: NEEDED Status: Active Protocol: Document 04/18/18 09:49 AB (Rec: 04/18/18 12:32 AB [id number]) Physical Therapy Treatment Education Education Provided Safety M7 PT-IP Assessment and Plan Start: 04/17/18 13:06 Freq: NEEDED Status: Active Protocol: Document 04/18/18 09:49 AB (Rec: 04/18/18 12:32 AB [id number]) PT Summary Assessment and Plan Potential Rehabilitation Potential Good Summary Impairments Pain ROM Strength Balance Sensation Bed Mobility Transfers Gait Activity Tolerance Progress Towards Goals Progressing Toward Goals Assessment Summary pt progressing with mobility and caregiver training conducted. spouse was able to assist pt with bed mobility and transfers. will conduct further training for ambulation and stair climbing training. Goals Bed Mobility Goal Independent Transfer Goal Standby Assistance Front Wheeled Walker Gait Goal Standby Assistance Front Wheel Walker Gait Distance 200 Other Goals up/down 2 steps without rails FWW CGA Days to Meet Goals 3 Frequency of Treatment Frequency Of Treatment Twice a Day Treatment Plan Physical Therapy Treatment Plan Bed Mobility Training Transfer Training Gait Training Therapeutic Exercise Balance Retraining Post Op Education Discharge Planning Hot or Cold Pack Neuromuscular Re-ed Coordination Retraining Manual Therapy Other Recommendations and Next Treatment caregiver training, bed Focus mobility, transfers, ambulation Recommendations To Nursing Amount of Assist Needed 1 Person Assist Discharge Recommendations PT Discharge Recommendations Home with Assistance
[2018-04-18] MEDS: MAG HYDROX/ALUM/SIMETH 30 ML UDC PO (12:50)
[2018-04-18] MEDS: FLEETS ENEMA 1 EACH PR (12:55)
--- NOTE | 2018-04-18 14:24 | PT.IPTN ---
Current Diagnoses Other forms of scoliosis, lumbar region (04/16/18) Spinal stenosis, lumbar region with neurogenic claudication (04/16/18) Other intervertebral disc degeneration, lumbar region (04/16/18) Surgery Performed Operation Date: 04/16/18 10:15 Actual Procedures p L2-3,L3-4,L4-5 laminectomies,L3-4,L4-5 anterior/posterior instru fusion (XLIF) w/bone graft - Michael Garcia MD Physical Therapy Treatment Note M2 PT-IP Current Condition Start: 04/17/18 13:06 Freq: NEEDED Status: Active Protocol: Document 04/17/18 10:26 AB (Rec: 04/17/18 13:29 AB [id number]) Physical Therapy Current Condition Current Condition Evaluation Date 04/17/18 Treatment Diagnosis s/p L2-3, 3-4, 4-5 ant/post fusion/lami; difficulty in walking Onset Date 04/16/18 Precautions Lumbar Precautions Log Roll No Twisting Limit Bending Lifting Restriction of 10 lbs Gait Belt above Incisional Area M3 PT-IP Subjective Start: 04/17/18 13:06 Freq: NEEDED Status: Active Protocol: Document 04/18/18 14:24 AB (Rec: 04/18/18 15:36 AB [email or web address]) Subjective Physical Therapy Visit Type Type Treatment Note Visit Start Time 14:24 Visit Stop Time 14:46 Total Visit Minutes 22 Number of 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 Visits 0 Physical Therapy Visit Comments Patient Comments pt agreeable to do PT Therapy Pain Assessment Pain When Pain Assessed At Rest Pain Present Pain Present Pain Reported Location back Intensity 5 Scale Used Numeric (1 - 10) Pain Management Techniques Re-positioning Timing of Activity with Medications M4 PT-IP Mobility and Gait Start: 04/17/18 13:06 Freq: NEEDED Status: Active Protocol: Document 04/18/18 14:24 AB (Rec: 04/18/18 15:36 AB [email or web address]) PT-Bed Mobility Assessment Rolling Type of Rolling Log Rolling Level of Assist Standby Assistance Supine to Sit Supine to Sit Standby Assistance Sit to Supine Sit to Supine Standby Assistance Scooting Scooting to Edge of Bed Standby Assistance PT-Transfer Assessment Sit to and From Stand Sit to and from Stand Contact Guard Assistance Equipment Transfer Assistive Device Gait Belt Front Wheeled Walker Orthotic/Prosthetic Devices or Brace: No Comments Mobility Comments caregiver training conducted and spouse was able to assist pt safety with bed mobility and transfers Gait Assessment Gait Gait Assistance Required: Contact Guard Assist Distance (Feet) 300 Able to Maintain Weight Bearing Status Yes During Gait Assistive Devices Assistive Device Gait Belt Front Wheeled Walker Orthotic/Prosthetic Devices or Brace: No Gait Deviations General Gait Pattern Antalgic Factors Limiting Gait Function Factors Limiting Gait Function Decreased Strength Limited Range of Motion Pain Poor Balance Comments Gait Comments spouse was able to assist pt with ambulation using FWW. Stair Climbing Assessment Evaluation Level of Assist On Stairs Contact Guard Assistance Devices Stair Climbing Assistive Devices Front Wheel Walker Right Railing Technique/Endurance Stair Climbing Direction Ascend and Descend Stair Climbing Technique Step to Step Number of Steps Climbed 3 Query Text: Stair Climbing Set # Repetitions (reps) 2 Comments Stair Climbing Comments pt has 2 platform steps to get into the house and pt completed up/down plat form step with spouse assisting CGA . cues provided for safety. pt has 11 steps to get to bed room. pt completed up/down steps with PT assisting first using R rail and requiring CGA . educated spouse on how to assist pt and counterdemonstrated with pt and was able to assist pt with stair climbing. M5 PT-IP Objective Assessments Start: 04/17/18 13:06 Freq: NEEDED Status: Active Protocol: Document 04/17/18 10:26 AB (Rec: 04/17/18 13:29 AB [id number]) Orientation Orientation/Cognition Level of Alertness Alert Orientation Name Age Birthday Place Situation Safety Awareness Understands Safety Issues Memory Description Short Term Impaired Gross Range of Motion Lower Extremity ROM Assessment Within Functional Limits Strength Lower Extremity Strength Assessment Right Impaired Knee 4-/5 Coordination Assessment Gross Coordination Gross Coordination WNL Sensation Assessment Sensation Gross Sensation WNL Muscle Tone Muscle Tone WNL Yes M6 PT-IP Treatment Start: 04/17/18 13:06 Freq: NEEDED Status: Active Protocol: Document 04/18/18 14:24 AB (Rec: 04/18/18 15:36 AB [email or web address]) Physical Therapy Treatment Education Education Provided Precautions Safety M7 PT-IP Assessment and Plan Start: 04/17/18 13:06 Freq: NEEDED Status: Active Protocol: Document 04/18/18 14:24 AB (Rec: 04/18/18 15:36 AB [email or web address]) PT Summary Assessment and Plan Potential Rehabilitation Potential Good Summary Impairments Pain ROM Strength Balance Coordination Sensation Bed Mobility Transfers Gait Activity Tolerance Progress Towards Goals Progressing Toward Goals Assessment Summary caregiver training conducted and spouse was able to assist pt safely. pt may go home when medically stable. Goals Bed Mobility Goal Independent Transfer Goal Standby Assistance Front Wheeled Walker Gait Goal Standby Assistance Front Wheel Walker Gait Distance 350 Other Goals up/down 2 platform steps without rails FWW SBA; up/down 11 steps with R rail ascending SBA Days to Meet Goals 3 Frequency of Treatment Frequency Of Treatment Twice a Day Treatment Plan Physical Therapy Treatment Plan Bed Mobility Training Transfer Training Gait Training Therapeutic Exercise Balance Retraining Post Op Education Discharge Planning Hot or Cold Pack Neuromuscular Re-ed Coordination Retraining Manual Therapy Recommendations To Nursing Amount of Assist Needed 1 Person Assist Discharge Recommendations PT Discharge Recommendations Home with Assistance
--- NOTE | 2018-04-18 15:16 | OT.IP.TRT ---
Current Diagnoses Other forms of scoliosis, lumbar region (04/16/18) Spinal stenosis, lumbar region with neurogenic claudication (04/16/18) Other intervertebral disc degeneration, lumbar region (04/16/18) Surgery Performed Operation Date: 04/16/18 10:15 Actual Procedures p L2-3,L3-4,L4-5 laminectomies,L3-4,L4-5 anterior/posterior instru fusion (XLIF) w/bone graft - Michael Garcia MD Occupational Therapy Treatment Note M2 OT-IP Current Condition Start: 04/17/18 16:23 Freq: Status: Active Protocol: Document 04/17/18 16:15 PJM (Rec: 04/17/18 16:37 PJM [email or web address]) Occupational Therapy Current Condition Current Condition Evaluation Date 04/17/18 Treatment Diagnosis decreased self care, mobility s/p L2-5 lami , L3-5 ant/ posterior XLIF Post Operative Precautions Lumbar Precautions Log Roll No Twisting Limit Bending Lifting Restriction of 10 lbs Gait Belt above Incisional Area M3 OT- IP Subjective and Pain Start: 04/17/18 16:23 Freq: Status: Active Protocol: Document 04/18/18 15:16 PJM (Rec: 04/18/18 17:13 PJM [id number]) OT- Subjective Occupational Therapy Visit Type Type Treatment Note Visit Start Time 14:45 Visit Stop Time 15:16 Total Visit Minutes 29 Notes Pt having trouble with abdominal distention and has not had BM with possible ileus per RN. Pt has had suppository and enema with multiple bowel meds also without significant result. Pt would like to shower. Occupational Therapy Visit Comments Patient Comments I really wish this bowel thing would get better. Patient/Caregiver Goals to go home OT Pain Assessment Pain When Pain Assessed After Treatment Pain Present Pain Present Reassessed Location back Intensity 3 Scale Used Numeric (1 - 10) Description Aching Acute M4 OT- IP ADL's Start: 04/17/18 16:23 Freq: Status: Active Protocol: Document 04/18/18 15:16 PJM (Rec: 04/18/18 17:13 PJM [id number]) OT ADL-Dressing General Eval Upper Body Dressing Ability Independent Lower Body Dressing Ability Independent Areas Needing Assistance Socks Assistive Devices Dressing Assistive Devices Sock Aid Comments OT Dressing Comments Pt independent with gown and socks using sock aid after shower. Other lower body education completed yesterday with pt/. OT ADL-Toileting General Evaluation Toileting Ability Independent Comments OT Toileting Comments good body mechanics noted OT ADL-Bathing Bathing Type Bathing Type Shower General Evaluation Bathing Ability Standby Assistance Minimal Assistance Areas Needing Assistance Wash/Dry Upper Body Wash/Dry Back Devices Bathing Equipment Long Handled Sponge or Office Mail Clerk Held Shower Sprayer Shower Chair without Arms Grab Bars Comments OT Bathing Comments Provided education re: body mechanics and use of long bath sponge. able to assist pt appropriately. Pt demo's good body mechanics. They have necessary equipt at home. M5 OT- IP IADL's Start: 04/17/18 16:23 Freq: Status: Active Protocol: Document 04/17/18 16:15 PJ (Rec: 04/17/18 16:37 [facility] [id number]) OT-Instrumental Activities of Daily Living Deficits IADL Deficits Identified Deficits Home Safety Awareness Awareness of Need for Assistance at Home Good Awareness Ability to Problem Solve Emergency Able to Problem Solve Situations Medication Management Medication Management No Deficits Identified Money Management Money Management No Deficits Identified Meal Preparation Meal Preparation Caregiver Provides Assist Meal Preparation Comments to assist PRN Edger Machine Setter Edger Machine Setter Caregiver Provides Assist Edger Machine Setter Comments to assist PRN Driving Driving Caregiver Provides Assist Driving Comments to assist until pt able M6 OT- IP Functional Cognition Start: 04/17/18 16:23 Freq: Status: Active Protocol: Document 04/17/18 16:15 PJM (Rec: 04/17/18 16:37 [facility] [id number]) Cognitive Factors Limiting Selfcare Function Cognitive Ability Level of Alertness Alert Patient Orientation Name Age Birthday Month Date Year Day of Week Place Situation Attention Span Ability Capable of Focused Attention Capable of Sustained Attention Ability to Follow Commands Able to Follow One Step Commands Able to Follow Multi-Step Commands Memory Description No Deficits Noted Safety Awareness No Deficits Noted Problem Solving Ability No deficits Noted Executive Function Ability No Deficits Noted Cognitive Comments Cognitive Assessment Comments WNL OT- Vision and Hearing OT- Hearing Assessment OT- Hearing Assessment WFL OT- Vision Assessment Visual Acuity WFL Vision Assessment Comments pt denies any recent changes M7 OT- IP Mobility and Balance Start: 04/17/18 16:23 Freq: Status: Active Protocol: Document 04/18/18 15:16 PJM (Rec: 04/18/18 17:13 [facility] [id number]) OT-Transfer Assessment Sit to and From Stand Sit to and from Stand Standby Assistance Transfers Transfer Ability Independent Standby Assistance Technique Transfer Destination Chair Shower Stall Transfer Technique Stand Step Pivot Devices Transfer Assistive Devices Gait Belt Front Wheeled Walker Comments Mobility Comments SBA with shower stall transfer , independent with chair transfer OT- Gait Assessment Gait Gait Assistance Required: Standby Assistance Distance (Feet) 20 Assistive Devices Assistive Device Gait Belt Front Wheeled Walker Comments Gait Ability Comments Pt has been walking with in halls multiple times today to facilitate BM OT- Balance Assessment Sitting Balance and Reactions Static Sitting Balance Ability Good Dynamic Sitting Balance Ability Good Standing Balance and Reactions Static Standing Balance Ability Good Dynamic Standing Balance Ability Good M8 OT- IP Objective Assessments Start: 04/17/18 16:23 Freq: Status: Active Protocol: Document 04/17/18 16:15 PJM (Rec: 04/17/18 16:37 PJ [id number]) OT Gross Range of Motion Upper Extremity Range of Motion Assessment Within Functional Limits OT Strength Upper Extremity Strength Assessment Within Functional Limits Hand Water Purifier Operator Strength Hand Dominance Right OT- Coordination Assessment Upper Extremity Finger to Nose Test Within Functional Limits Finger Tapping Test Within Functional Limits Comments Coordination Comments BUE WNL OT-Muscle Tone Assessment Muscle Tone WNL Yes OT Sensation Assessment Comments Summary Comments BUE WNL per pt Edema Edema Absent M9 OT- IP Assessment and Plan Start: 04/17/18 16:23 Freq: Status: Active Protocol: Document 04/18/18 15:16 PJM (Rec: 04/18/18 17:13 PJ [id number]) OT Summary Assessment and Plan Potential Rehabilitation Potential Excellent Summary Progress Towards Goals Safe For Discharge Goals Met Assessment Summary All OT goals achieved for this admission. Pt moving very well with FWW and able to assist pt appropriately with shower. Pt is independent or modified indep with adaptive equipment with other self care skills. Provided education re: home safety and how to carry items with FWW as pt will be home alone while works. Provided education re: car transfers. Pt/ verbalize and demo understanding of all education. No further OT services needed. Pt will d/c home with assist from working when medically stable. Frequency of Treatment Frequency Of Treatment Discharge Discharge Recommendations OT Discharge Recommendations Home with Assistance
[2018-04-18] MEDS: SENNOSIDES 8.6 MG TABLET 17.2 MG PO (21:28)
[2018-04-18] MEDS: GABAPENTIN 300 MG CAPSULE PO (21:29)
--- NOTE | 2018-04-18 22:32 | PC.NURSE ---
Assumed care of pt at 1900. Pt resting in bed during bedside hand-off. Ambulating in halls with staff. Medicating for post-op pain per apr. Reports flatus but no BM yet. Drinking smooth move tea and medicating with laxatives per apr. Calling appropriately for needs.
[2018-04-19] VITALS (8 sets, daily range): BP systolic 105–133; BP diastolic 52–80; PULSE 78–798; RESP 14–20; TEMP 36.3–36.9; O2SAT 93–98
[2018-04-19] MEDS: OXYCODONE IR 10 MG TABLET PO ×8 (00:35→22:57)
[2018-04-19] MEDS: BISACODYL 10 MG SUPP PR (00:49)
[2018-04-19] MEDS: hydrOXYzine pamoate 25 MG CAPSULE PO ×4 (03:59→21:28)
[2018-04-19] MEDS: PANTOPRAZOLE 40 MG TABLET PO (06:02)
--- NOTE | 2018-04-19 07:40 | PM.PNPO.1 ---
Subjective Date Patient Seen: 04/19/18 Time Patient Seen: 07:41 Interval history: He has passed a little bit of gas. A little less distention in the abdomen today. However still very uncomfortable and causing back spasms. Exam Vital Signs (past 8 hours): - 04/19/18 00:00 04/19/18 04:00 Temperature 98.5 F 98.5 F Pulse Rate 88 78 Respiratory Rate 18 18 Blood Pressure 105/52 L 133/80 Pulse Oximetry 95 98 Fraction of Inspired Oxygen 21 Oxygen Delivery Method Room Air Oxygen Flow Rate 0 Const Orientation: alert and oriented x3 GI Other: Decreased abdominal distention. Positive bowel sounds Back/Spine/Pelvis Other: Mild drainage on dressing. Objective Labs Result Diagrams: 04/17/18 05:15 Assessment & Plan Post-op Postoperative Procedures Operation Date: 04/16/18 10:15 Actual Procedures Side Surgeon p L2-3,L3-4,L4-5 laminectomies,L3-4,L4-5 anterior/posterior instru fusion (XLIF) w/bone graft Michael Garcia MD he has a postoperative ileus. There still bowel sounds and he is passing some gas and this is getting better. I encouraged him to get up and walk as much as possible. We have him just on liquids at this point. We will try Reglan. Discharge home once the ileus resolved. Quality VTE Deep Vein Thrombosis/Pulmonary Embolism Present on Admission: No
[2018-04-19] MEDS: DOCUSATE 100 MG CAPSULE PO ×2 (09:02→20:11)
[2018-04-19] MEDS: CELECOXIB 200 MG CAPSULE PO ×2 (09:02→20:11)
[2018-04-19] MEDS: LISINOPRIL 20 MG TABLET PO (09:02)
[2018-04-19] MEDS: METOCLOPRAMIDE 10 MG/2 ML INJ IV ×3 (09:02→21:28)
[2018-04-19] MEDS: MAG HYDROX/ALUM/SIMETH 30 ML UDC PO (09:58)
--- NOTE | 2018-04-19 11:27 | PT.IPTN ---
Current Diagnoses Other forms of scoliosis, lumbar region (04/16/18) Spinal stenosis, lumbar region with neurogenic claudication (04/16/18) Other intervertebral disc degeneration, lumbar region (04/16/18) Surgery Performed Operation Date: 04/16/18 10:15 Actual Procedures p L2-3,L3-4,L4-5 laminectomies,L3-4,L4-5 anterior/posterior instru fusion (XLIF) w/bone graft - Michael Garcia MD Physical Therapy Treatment Note M2 PT-IP Current Condition Start: 04/17/18 13:06 Freq: NEEDED Status: Active Protocol: Document 04/17/18 10:26 AB (Rec: 04/17/18 13:29 AB [id number]) Physical Therapy Current Condition Current Condition Evaluation Date 04/17/18 Treatment Diagnosis s/p L2-3, 3-4, 4-5 ant/post fusion/lami; difficulty in walking Onset Date 04/16/18 Precautions Lumbar Precautions Log Roll No Twisting Limit Bending Lifting Restriction of 10 lbs Gait Belt above Incisional Area M3 PT-IP Subjective Start: 04/17/18 13:06 Freq: NEEDED Status: Active Protocol: Document 04/19/18 12:44 AB (Rec: 04/19/18 12:56 AB [id number]) Subjective Physical Therapy Visit Type Type Treatment Note Visit Start Time 11:27 Visit Stop Time 11:38 Total Visit Minutes 11 Number of AIRCRAFT PILOT Visits 0 Therapy Pain Assessment Pain When Pain Assessed At Rest Pain Present Pain Present Pain Reported Location Abdomen Scale Used pain scale not stated Pain Management Techniques Timing of Activity with Medications M4 PT-IP Mobility and Gait Start: 04/17/18 13:06 Freq: NEEDED Status: Active Protocol: Document 04/19/18 12:44 AB (Rec: 04/19/18 12:56 AB [id number]) PT-Bed Mobility Assessment Rolling Type of Rolling Log Rolling Level of Assist Standby Assistance Supine to Sit Supine to Sit Standby Assistance Sit to Supine Sit to Supine Standby Assistance PT-Transfer Assessment Sit to and From Stand Sit to and from Stand Standby Assistance Equipment Transfer Assistive Device Gait Belt Front Wheeled Walker Orthotic/Prosthetic Devices or Brace: No Gait Assessment Gait Gait Assistance Required: Standby Assistance Distance (Feet) 350 Able to Maintain Weight Bearing Status Yes During Gait Assistive Devices Assistive Device Gait Belt Front Wheeled Walker Orthotic/Prosthetic Devices or Brace: No Gait Deviations General Gait Pattern Antalgic Decreased Stride Length Decreased Feet Clearance Factors Limiting Gait Function Factors Limiting Gait Function Decreased Activity Tolerance Decreased Strength Limited Range of Motion Pain Poor Balance Poor Safety Awareness Comments Gait Comments pt ambulating with spouse in the hallway. reviewed bed mobility, transfers and ambulation with pt and spouse. educated pt and spouse regarding PT goals and plans and informed them regarding d/ c form PT. pt and spouse agreed. M5 PT-IP Objective Assessments Start: 04/17/18 13:06 Freq: NEEDED Status: Active Protocol: Document 04/17/18 10:26 AB (Rec: 04/17/18 13:29 AB [id number]) Orientation Orientation/Cognition Level of Alertness Alert Orientation Name Age Birthday Place Situation Safety Awareness Understands Safety Issues Memory Description Short Term Impaired Gross Range of Motion Lower Extremity ROM Assessment Within Functional Limits Strength Lower Extremity Strength Assessment Right Impaired Knee 4-/5 Coordination Assessment Gross Coordination Gross Coordination WNL Sensation Assessment Sensation Gross Sensation WNL Muscle Tone Muscle Tone WNL Yes M6 PT-IP Treatment Start: 04/17/18 13:06 Freq: NEEDED Status: Active Protocol: Document 04/19/18 12:44 AB (Rec: 04/19/18 12:56 AB [id number]) Physical Therapy Treatment Education Education Provided Precautions Safety M7 PT-IP Assessment and Plan Start: 04/17/18 13:06 Freq: NEEDED Status: Active Protocol: Document 04/19/18 12:44 AB (Rec: 04/19/18 12:56 AB [id number]) PT Summary Assessment and Plan Potential Rehabilitation Potential Good Summary Impairments Pain ROM Strength Balance Coordination Sensation Bed Mobility Transfers Gait Activity Tolerance Progress Towards Goals Progressing Toward Goals Assessment Summary will d/c pt from PT. pt is requiring SBA for safety and has been ambulating with nursing and spouse in the hallway. pt unable to go home at this time due to his ileus . caregiver training completed and conducted yesterday and spouse was able to assist pt safely. Goals Bed Mobility Goal Independent Transfer Goal Standby Assistance Front Wheeled Walker Gait Goal Standby Assistance Front Wheel Walker Gait Distance 350 Other Goals up/down 2 platform steps without rails FWW SBA; up/down 11 steps with R rail ascending SBA Days to Meet Goals 3 Frequency of Treatment Frequency Of Treatment Discharge Treatment Plan Physical Therapy Treatment Plan Bed Mobility Training Transfer Training Gait Training Therapeutic Exercise Balance Retraining Post Op Education Discharge Planning Hot or Cold Pack Neuromuscular Re-ed Coordination Retraining Manual Therapy Recommendations To Nursing Amount of Assist Needed 1 Person Assist Discharge Recommendations PT Discharge Recommendations Home with Assistance
--- NOTE | 2018-04-19 18:12 | RT ---
Addendum entered by Dre James, RT 04/19/18 18:13: Pt. wasn't in any respiratory distress. No SOB noted. Original Note: Went in and spoke with pt. he stated that his breathing has been okay today. i let him know that we have PRN treatments for him if he needs ones. Pt. understood.
--- NOTE | 2018-04-19 19:28 | PC.NURSE ---
1534- Pt A/O x3, ABD severe distended and firm, audible BT's and hyperactive by auscultation, flatus+, clears diet, ambulating hallways, indep FWW (with ), indep in room to BRP. Dr Garcia in to see pt, informed pt gurgling is good sign, BM on the way, BT hyper in all quads, denies nausea. 3 back drsgs CDI, with some shadow drainage, to center drsg, and blisters around main drsg, from tape, skin sensitive. 96% RA, LS clear, denies SOB. LFA SL. VSS. Oxycodone 10mg Q-3hr, and Vistaril 25mg Q-4hr continuos. Call light in reach.
[2018-04-19] MEDS: GABAPENTIN 300 MG CAPSULE PO (20:11)
[2018-04-19] MEDS: SENNOSIDES 8.6 MG TABLET 17.2 MG PO (20:11)
--- NOTE | 2018-04-20 | DI.RAD.S_ITS ---
PROCEDURE: XR ABDOMEN 3V INDICATIONS: ileus, constipation, distension TECHNIQUE: One view chest and two views of the abdomen were acquired. COMPARISON: None. FINDINGS: Surgical changes and devices: None. Chest: Lungs are clear. Heart size is normal. No pleural effusions. No pneumoperitoneum. Abdomen: Bowel gas pattern is nonspecific. There is gaseous distention of the colon to the level of the rectum. Scattered air-fluid levels are noted. No suspicious calcifications. Visualized solid organ contours appear normal. Bones: No suspicious bony lesions. Lower lumbar spine degenerative disc change. Cervical spine fixation hardware. IMPRESSION: Nonspecific bowel gas pattern with scattered air-fluid levels and gaseous distention of colon to the level of the rectum. Dictated by: Alecia Selby MD, PhD on 04/20/2018 at 11:38 Approved by: Alecia Selby MD, PhD on 04/20/2018 at 11:39
[2018-04-20] MEDS: hydrOXYzine pamoate 25 MG CAPSULE PO ×5 (00:59→18:33)
--- NOTE | 2018-04-20 01:09 | PC.NURSE ---
2300- Pt POD#3 Lami & T-Lift w/ postop complication of ilius. Pt has not had BM; all measures taken to promote movements of bowels. Managing pt's pain, instructed to wake him up when PO pain meds & muscle relaxers are needed. Pt remains on clear diet w/ distended abdomen & hyperactive bowel sounds. Not passing flatus at this time. 3 dressings on back surgical site intact, some blistering noted from reaction to tape. 0100- PO Vistaril given per pt's request. Eating a popsicle as pt states this helps give him gas to relieve stomach distention. No needs at this time.
[2018-04-20] MEDS: OXYCODONE IR 10 MG TABLET PO ×2 (01:57→05:06)
[2018-04-20] MEDS: METOCLOPRAMIDE 10 MG/2 ML INJ IV ×3 (03:05→16:54)
[2018-04-20 04:00] VITALS: BP 120/77; PULSE 84; RESP 16; TEMP 36.7; O2SAT 95
[2018-04-20] MEDS: PANTOPRAZOLE 40 MG TABLET PO (05:08)
[2018-04-20 08:05] VITALS: BP 113/73; PULSE 71; RESP 18; TEMP 36.4; O2SAT 95
[2018-04-20] MEDS: LISINOPRIL 20 MG TABLET PO (09:59)
[2018-04-20] MEDS: CELECOXIB 200 MG CAPSULE PO ×2 (09:59→21:14)
[2018-04-20] MEDS: LACTATED RINGERS 1,000 ML 125 ML IV (10:00)
[2018-04-20] MEDS: OXYCODONE IR 5 MG TABLET PO ×4 (10:00→21:15)
[2018-04-20] MEDS: DOCUSATE 100 MG CAPSULE PO ×2 (10:00→21:14)
--- NOTE | 2018-04-20 10:06 | P.PN_ITS ---
Subjective Date Patient Seen: 04/20/18 Time Patient Seen: 10:01 Interval history: Hospital day 5, postop day 4 following L2-3 through L4-5 XL IF, cage, posterior screw fixation by Dr. Garcia. Patient developed a postoperative ileus on postop day 2. He has been given bowel regime with bi sacodyl, docusate, senna, enema without relief. Complains of persisting bowel discomfort and distention. Has been on clear liquid diet. He states he has not passed any gas since 1600 yesterday. He is up and ambulating. Has been taking oxycodone 10 mg q.3h. Exam Vital Signs (past 8 hours): - 04/20/18 04:00 04/20/18 08:05 Temperature 98.0 F 97.5 F L Pulse Rate 84 71 Respiratory Rate 16 18 Blood Pressure 120/77 113/73 Pulse Oximetry 95 95 Fraction of Inspired Oxygen 21 Oxygen Delivery Method Room Air Oxygen Flow Rate 0 Narrative Exam Narrative: Alert, oriented. In moderate discomfort lying in bed. Abdomen distended but not tympanic with some softness. Minimal high-pitched bowel sounds. Back. Dressings to lumbar and left flank area are dry without drainage or inflammation. Legs. No calf pain or swelling. Pulses and sensation symmetrical. Objective Labs Result Diagrams: 04/17/18 05:15 Assessment & Plan Post-op Postoperative Procedures Operation Date: 04/16/18 10:15 Actual Procedures Side Surgeon p L2-3,L3-4,L4-5 laminectomies,L3-4,L4-5 anterior/posterior instru fusion (XLIF) w/bone graft Michael Garcia MD Plan: I did talk with Dr. Garcia regarding the patient's ileus. It was decided make him NPO. Will use LR IV 125 mL/hour. He may take p.o. meds with sips of water. Will also do surgical consult with Dr. De Luna to determine if any other treatment is needed since patient is not improving. I did talk to the patient about trying to decrease the frequency of his pain medication. Quality VTE Deep Vein Thrombosis/Pulmonary Embolism Present on Admission: No
--- NOTE | 2018-04-20 10:39 | CM.DPNOTE ---
Chart Review: Per Ortho WILLA Cohn, pt is Hospital day 5 following spinal surgery w/ Dr Garcia and postoperative ileus POD#2. Pt complaining of persistent abd discomfort, he is on clear liquid diet. He has been up and ambulating. Dr Garcia has decided to transition pt back to NPO today and consult requested for general surgery to review since pt's abd symptoms are not improving. Therapy team continue to work w/pt, they have conducted cg training w/spouse and agree pt is cleared to return home, from a functional standpoint, w/ spouse to assist. P: DC home w/spouse once medically cleared for such. This HAND II CUTTER following along and will remain available in case any DC needs or concerns arise. QASIM Light
[2018-04-20 11:24] LABS: Add Manual Diff / Slide Review NO; Basophils Absolute Auto 0 /uL (0-100); Basophils Percent Auto 0.5 % (0-2); Eosinophils Absolute Auto 200 /uL (0-450); Eosinophils Percent Auto 3.9 % (2-4); Hematocrit 34.2 % (41-53); Hemoglobin 11.6 g/dL (13.5-17.5); Lymphocytes Absolute Auto 1100 /uL (1100-4500); Lymphocytes Percent Auto 18.6 % (25-40); Mean Corpuscular Hemoglobin 30.7 PG (26-34); Mean Corpuscular Volume 90.4 fL (80-100); Monocytes Absolute Auto 600 /uL (0-900); Neutrophils Absolute Auto 4200 /uL (1500-7000); Platelet Count 170 X10^3/uL (150-400); Red Blood Cell Count 3.79 X10^6/uL (4.5-5.9); Red Cell Distribution Width 12.4 % (11.6-14.8); White Blood Cell Count 6.2 X10^3/uL (4.5-11.0)
[2018-04-20 11:28] LABS: Alanine Aminotransferase 40 IU/L (21-72); Albumin 3.3 g/dL (3.5-5.0); Albumin Globulin Ratio 1.2 (1.0-2.8); Alkaline Phosphatase 37 U/L (38-126); Aspartate Aminotransferase 36 IU/L (17-59); BUN Creatinine Ratio 13.8 (6-22); Blood Urea Nitrogen 11 mg/dL (9-20); Calcium 8.2 mg/dL (8.4-10.2); Carbon Dioxide 30 mmol/L (22-32); Chloride 96 mmol/L (98-107); Estimated Glomerular Filt Rate > 60.0 mL/min (>60); Globulin 2.8 g/dL (1.7-4.1); Glucose 97 mg/dL (80-110); HEMOLYSIS < 15 (0-50); Lipase 45 U/L (23-300); Sodium 133 mmol/L (137-145); Total Protein 6.1 g/dL (6.3-8.2)
[2018-04-20 11:38] LABS: Magnesium 2.2 mg/dL (1.6-2.3)
--- NOTE | 2018-04-20 13:11 | PM.CN ---
History of Present Illness Date Patient Seen: 04/20/18 Time Patient Seen: 13:11 Chief complaint: lumbar/codes in celia notes Reason for consult: Ileus Requesting provider: Michael Garcia Narrative: 62-year-old male 4 days postoperative from lumbar spine surgery involving extensive dissection and hardware insertion who has become progressively distended throughout the abdomen since surgery. He was initially tolerating some regular diet became progressively anorexic as his abdomen continued to distend. He did not have nausea or vomiting however. No subjective fever or chills. No chest pain or shortness of breath. He passed a small amount of flatus last evening and earlier this morning but he has not had a bowel movement since surgery. He subjectively feels quite constipated. He is having occasional crampy abdominal pain but is major complaint remains postoperative back pain from the surgery itself. In fact, he has been requiring significant amounts of oxycodone every 3 hr since surgery. Today he has begun to wean from the narcotic medication as much as possible but is still requiring Vistaril and hydrocodone every 3-4 hours. He is ambulating somewhat with a walker but clearly his mobility is diminished in light of his recent operation. No dysuria or hematuria. FORMERLY [facility], [facility] Medical History Acid reflux (Acute) Arthritis (Acute) Asthma (Acute) BCC (basal cell carcinoma) (Acute) Lee's esophagus (Acute) First degree AV block (Acute) Generalized headaches (Acute) HTN (hypertension) (Acute) Hearing impaired (Acute) Low back pain with sciatica (Acute) Numbness (Acute) PVC's (premature ventricular contractions) (Acute) Parotid cyst (Acute) Pneumonia (Acute) RBBB (Acute) Renal cyst (Acute) Rupture of left biceps tendon (Acute) Surgical History History of carpal tunnel surgery of right wrist (Acute) Hx of laminectomy (Acute ~2016) Hx of tonsillectomy (Acute) S/P cervical spinal fusion (Acute) S/P foot surgery, left (Acute) Social History household members: spouse and children Smoking Status: Former smoker alcohol intake: current Social History household members: spouse and children Smoking Status: Former smoker alcohol intake: current Meds Home Medications Medication Instructions Recorded Confirmed Type acetaminophen [Tylenol Extra 1,000 mg PO Q6H PRN 04/12/18 04/16/18 History Strength] albuterol sulfate 2 puff INHALATION Q4-6H PRN 04/12/18 04/16/18 History lisinopril 20 mg PO DAILY 04/12/18 04/16/18 History omeprazole 40 mg PO DAILY 04/12/18 04/16/18 History tadalafil [Cialis] 5 mg PO DAILY PRN 04/12/18 04/16/18 History celecoxib 200 mg PO BID PRN #60 cap 04/18/18 Rx docusate sodium 100 mg PO BID PRN #40 cap 04/18/18 Rx hydroxyzine pamoate 25 mg PO Q4HR PRN #20 cap 04/18/18 Rx oxycodone See Rx Instructions .ROUTE 04/19/18 Rx .COMPLEX PRN #40 tab Allergies Allergy/AdvReac Type Severity Reaction Status Date / Time oxycodone AdvReac Mild Itching Verified 04/16/18 08:44 Review of Systems Review of Systems All systems reviewed & are unremarkable except as noted in HPI and below Exam Vital Signs (past 8 hours): - 04/20/18 08:05 Temperature 97.5 F L Pulse Rate 71 Respiratory Rate 18 Blood Pressure 113/73 Pulse Oximetry 95 Fraction of Inspired Oxygen 21 Oxygen Delivery Method Room Air Oxygen Flow Rate 0 Narrative Exam Narrative: Well-nourished well-developed male in no acute distress. Alert oriented x3. Sclera nonicteric Regular rate and rhythm No audible wheezes Abdomen is moderately distended and tympanitic throughout. He is diffusely mildly tender but certainly has no involuntary guarding or rebound. Extremities show no clubbing or cyanosis. He moves all extremities symmetrically. Objective Labs Result Diagrams: 04/20/18 11:05 04/20/18 11:05 Labs: Laboratory Results - last 24 hr 04/20/18 04/20/18 04/20/18 11:05 11:05 11:05 WBC 6.2 RBC 3.79 L Hgb 11.6 L Hct 34.2 L MCV 90.4 MCH 30.7 MCHC 34.0 RDW 12.4 Plt Count 170 Neut % (Auto) 68.0 Lymph % (Auto) 18.6 L [place] % (Auto) 9.0 Eos % (Auto) 3.9 Baso % (Auto) 0.5 Neut # (Auto) 4200 Lymph # (Auto) 1100 [place] # (Auto) 600 Eos # (Auto) 200 Baso # (Auto) 0 Sodium 133 L Potassium 4.0 Chloride 96 L Carbon Dioxide 30 BUN 11 Creatinine 0.80 Estimated GFR > 60.0 BUN/Creatinine Ratio 13.8 Glucose 97 Calcium 8.2 L Magnesium Total Bilirubin 1.0 AST 36 ALT 40 Alkaline Phosphatase 37 L Total Protein 6.1 L Albumin 3.3 L Globulin 2.8 Albumin/Globulin Ratio 1.2 Lipase 45 04/20/18 11:05 WBC RBC Hgb Hct MCV MCH MCHC RDW Plt Count Neut % (Auto) Lymph % (Auto) [place] % (Auto) Eos % (Auto) Baso % (Auto) Neut # (Auto) Lymph # (Auto) [place] # (Auto) Eos # (Auto) Baso # (Auto) Sodium Potassium Chloride Carbon Dioxide BUN Creatinine Estimated GFR BUN/Creatinine Ratio Glucose Calcium Magnesium 2.2 Total Bilirubin AST ALT Alkaline Phosphatase Total Protein Albumin Globulin Albumin/Globulin Ratio Lipase Three view abdominal series is obtained today at my request which shows no free air. Lung ibrahim are clear. No dilated loops of small bowel or air-fluid levels in the small bowel. Colon is mildly dilated with air throughout from the cecum to the rectum. Few air-fluid levels in the colon. Assessment & Plan Assessment & Plan narrative: 62-year-old male with postoperative colonic ileus likely due to decreased mobility after surgery in conjunction with significant narcotic requirements. His bowel is not particularly markedly dilated and risk for colonic perforation is quite minimal. I discussed this with him. In addition to weaning as much as possible from opiates for analgesia he is mobilizing within the limits of his recent operation as well. Nonetheless he continues to suffer from ileus that has also remain refractory to enema therapy, rectal suppositories, Colace, Senokot, and milk of magnesia on 1 occasion. Per the orthopedic surgery service he is now NPO and receiving IV fluid resuscitation. From a general surgery perspective he could be allowed a clear liquid diet if he wishes. He is not nauseated or vomiting and may tolerate this. I would also recommend twice daily MiraLax as laxative therapy in addition to his current regimen as above. I see no indication for endoscopic decompression at this time since the bowel is not significantly dilated. I anticipate that his ileus will resolve over time, but this may take several more days. His electrolytes are unremarkable and require no correction at this time. He has no evidence of pancreatitis or infectious complications or mesenteric ischemia. We could also consider the addition of prune juice and lactulose to his oral regimen if he does not immediately respond to MiraLax. A dose of magnesium citrate could also potentially be beneficial. If he remains refractory to all of those measures without nausea, vomiting, or significant progressive distention then he may require formal bowel preparation with GoLYTELY. I doubt this will be necessary however. I discussed all this with him in detail. All questions were answered to his satisfaction, and he voiced understanding. Case reviewed with the attending nurse. Orders written.
[2018-04-20] MEDS: POLYETHYLENE GLYCOL 3350 17 GM POWD.PACK PO ×2 (13:43→21:14)
[2018-04-20 13:45] VITALS: BP 122/77; PULSE 79; RESP 20; TEMP 36.8; O2SAT 93
[2018-04-20 16:25] VITALS: BP 128/74; PULSE 91; RESP 14; TEMP 36.3; O2SAT 94
[2018-04-20] MEDS: MAGNESIUM CITRATE 300 ML SOLUTION PO (18:19)
[2018-04-20 20:13] VITALS: BP 132/74; PULSE 82; RESP 19; TEMP 36.6; O2SAT 93
[2018-04-20] MEDS: SENNOSIDES 8.6 MG TABLET 17.2 MG PO (21:14)
[2018-04-20] MEDS: GABAPENTIN 300 MG CAPSULE PO (21:14)
--- NOTE | 2018-04-20 21:50 | PC.NURSE ---
Shift note: Emiliano has ambulated x 2 in hallways tonight, once by himself, once with SBA by his . He told me later in shift that he would like someone to walk with him in the hallway as yesterday I had a lot of pain. Expressed frustration that staff seems to think I should do it by myself. Strict fall precautions & hospital protocols reinforced, pt declined to have his bed alarm on, requests to be independent in room. Wearing yellow socks. His gait is slow but steady, good use of FWW. Reports back pain 3/10, abdomen pain 4/10 it comes on and then it goes. Mag citrate given earlier as scheduled, did get up to BR around 2100 and had small loose watery BM. Encouraged to drink plenty of clear liquids to help keep hydrated and avoid constipation. Walking/gas/bowel function explained, ileus teaching reinforced. VS are stable, RA high 90's. Reports pain managed with one tab Oxycodone & Vistaril 25 mg. Back drsgs x2 with shadow drainage in marking. I had marked left hip/flank bruising/swelling earlier. Upon reassessment i saw no penmark. When patient getting OOB I went to remark left flank bruising/swelling and his said could you please not write on him! I explained rationale, they said his skin is very sensitive and earlier he asked me to wipe that off. His is very interactive with patient, assisting him with ADL's & asking lots of good questions about patient's care plan. They were asking about results of earlier Abdomen series, I read them the test results. They express no further questions or concerns tonight. I instructed him to call when he needs OOB so that staff is aware that he needs assistance.
[2018-04-20 23:55] VITALS: BP 110/75; PULSE 78; RESP 16; TEMP 36.4; O2SAT 94
[2018-04-21] MEDS: hydrOXYzine pamoate 25 MG CAPSULE PO ×5 (00:03→20:56)
[2018-04-21] MEDS: METOCLOPRAMIDE 10 MG/2 ML INJ IV ×2 (00:03→06:01)
[2018-04-21] MEDS: OXYCODONE IR 5 MG TABLET PO ×2 (00:30→09:06)
--- NOTE | 2018-04-21 01:34 | PC.NURSE ---
2300- Pt aware of PRN oxycodone use, wanting to cut this down tonight so he could possibly have a BM. Remains on clear liquid diet, had small BM today, but stomach still feels distended and painful. Moving independently w/ walker. Noted some bruising under L graft site; will cont to monitor. Pt would not let staff mildred the bruising as he says his skin reacts easily. 0015- PO Vistiril & IV Reglan given as ordered PRN. Pt wanted to wait for PO oxycodone, but stated he is in too much pain. Started w/ 5mg to see if that helps. 0300- Ambulated 2 loops around the unit, denies any dizziness. 0600- Pt states he had small loose BM, flushed the toilet before this RN could see.
[2018-04-21 04:12] VITALS: BP 114/75; PULSE 76; RESP 18; TEMP 36.8; O2SAT 95
[2018-04-21] MEDS: PANTOPRAZOLE 40 MG TABLET PO (06:00)
[2018-04-21 07:31] VITALS: BP 113/71; PULSE 66; RESP 16; TEMP 36.4; O2SAT 95
--- NOTE | 2018-04-21 07:51 | PC.NURSE ---
Addendum entered by Dona Gaona R.N. 04/21/18 14:29: GI - again up to br w/small liq stool w/particles, states now a lot of gas. Original Note: Addendum entered by Dona Gaona R.N. 04/21/18 14:09: GI - pt again had small liq stool w/few particles, states no flatus. Original Note: Addendum entered by Dona Gaona R.N. 04/21/18 13:38: INTEG - pt showered, dsgs removed, sutures intact, pt does have open blisters at r and l lateral areas, l hip area, abx ointment applied and allevyn over the r blisterm coversite dsgs applied. Original Note: Addendum entered by Dona Gaona R.N. 04/21/18 11:36: GI - after pt ambulated, ret to bed, dulcolax suppos admin, has call light and bsc available if needed. Original Note: Addendum entered by Dona Gaona R.N. 04/21/18 09:29: GI/MS/PAIN - pt up ambul [place] w/fww, gait steady, ret to chair, discussed pain mgt and given oxycodone 5mg and 25mg vistaril for back discomfort 4 on scale 0/10, added lactolose, discussed plan for shower later am. Original Note: AM NOTE - pt is drowsy, awakens easily, states back discomfort 3 on scale 0/10 ra 94%, hr reg 70, abd is distended, hypo rllq, ruq, active, tinkling sounds luq, llq, per pt has had some liq stools, discussed plan to mobilize later need ambul, to chair, am, pain mgt.
--- NOTE | 2018-04-21 08:21 | P.PN_ITS ---
Subjective Date Patient Seen: 04/21/18 Time Patient Seen: 08:19 Interval history: The back pain itself is doing better, it is primarily the abdominal distension. Still some burning going around the groin when standing. Dr. De Luna saw him yesterday who would recommended further medical treatment for his colonic ileus. The patient did have some very small runny stools last night. He continues to get up and walk around and is trying to take less narcotic medication. Exam Vital Signs (past 8 hours): - 04/21/18 04:12 04/21/18 07:31 Temperature 98.2 F 97.5 F L Pulse Rate 76 66 Respiratory Rate 18 16 Blood Pressure 114/75 113/71 Pulse Oximetry 95 95 Fraction of Inspired Oxygen 21 Oxygen Delivery Method Room Air Oxygen Flow Rate 0 Const Orientation: alert and oriented x3 GI Other: Very active bowel sounds in the lower quadrant. Primarily upper quadrants are distended. Back/Spine/Pelvis Other: Moderate dry drainage. 5/5 motor both lower extremities. Objective Labs Result Diagrams: 04/20/18 11:05 04/20/18 11:05 Labs: Laboratory Results - last 24 hr 04/20/18 04/20/18 04/20/18 11:05 11:05 11:05 WBC 6.2 RBC 3.79 L Hgb 11.6 L Hct 34.2 L MCV 90.4 MCH 30.7 MCHC 34.0 RDW 12.4 Plt Count 170 Neut % (Auto) 68.0 Lymph % (Auto) 18.6 L [place] % (Auto) 9.0 Eos % (Auto) 3.9 Baso % (Auto) 0.5 Neut # (Auto) 4200 Lymph # (Auto) 1100 [place] # (Auto) 600 Eos # (Auto) 200 Baso # (Auto) 0 Sodium 133 L Potassium 4.0 Chloride 96 L Carbon Dioxide 30 BUN 11 Creatinine 0.80 Estimated GFR > 60.0 BUN/Creatinine Ratio 13.8 Glucose 97 Calcium 8.2 L Magnesium Total Bilirubin 1.0 AST 36 ALT 40 Alkaline Phosphatase 37 L Total Protein 6.1 L Albumin 3.3 L Globulin 2.8 Albumin/Globulin Ratio 1.2 Lipase 45 04/20/18 11:05 WBC RBC Hgb Hct MCV MCH MCHC RDW Plt Count Neut % (Auto) Lymph % (Auto) [place] % (Auto) Eos % (Auto) Baso % (Auto) Neut # (Auto) Lymph # (Auto) [place] # (Auto) Eos # (Auto) Baso # (Auto) Sodium Potassium Chloride Carbon Dioxide BUN Creatinine Estimated GFR BUN/Creatinine Ratio Glucose Calcium Magnesium 2.2 Total Bilirubin AST ALT Alkaline Phosphatase Total Protein Albumin Globulin Albumin/Globulin Ratio Lipase Assessment & Plan Post-op Postoperative Procedures Operation Date: 04/16/18 10:15 Actual Procedures Side Surgeon p L2-3,L3-4,L4-5 laminectomies,L3-4,L4-5 anterior/posterior instru fusion (XLIF) w/bone graft Michael Garcia MD Stable from his lumbar fusion. However some primary concern is the large distended colonic ileus. I appreciate Dr. De Luna's help with this. We added MiraLax and Mag citrate yesterday. Today we will try lactulose. Quality VTE Deep Vein Thrombosis/Pulmonary Embolism Present on Admission: No
[2018-04-21] MEDS: CELECOXIB 200 MG CAPSULE PO ×2 (09:06→20:54)
[2018-04-21] MEDS: DOCUSATE 100 MG CAPSULE PO ×2 (09:06→20:55)
[2018-04-21] MEDS: POLYETHYLENE GLYCOL 3350 17 GM POWD.PACK PO ×2 (09:06→20:54)
[2018-04-21] MEDS: LACTULOSE 20 GM/30 ML SOLUTION 10 GM PO ×2 (09:13→16:52)
--- NOTE | 2018-04-21 10:37 | PM.PN.1 ---
Subjective Date Patient Seen: 04/21/18 Time Patient Seen: 10:37 Interval history: Patient remains distended but did pass some flatus and small amount of liquid stool late last evening. Having some mild diffuse abdominal pain but nothing severe. No subjective fever or chills. Back pain is improving and he is actually decreasing the amount of opioid medications he is requiring. Ambulating in the halls more aggressively. Denies any chest pain or shortness of breath. Exam Vital Signs (past 8 hours): - 04/21/18 04:12 04/21/18 07:31 Temperature 98.2 F 97.5 F L Pulse Rate 76 66 Respiratory Rate 18 16 Blood Pressure 114/75 113/71 Pulse Oximetry 95 95 Fraction of Inspired Oxygen 21 Oxygen Delivery Method Room Air Oxygen Flow Rate 0 Narrative Exam Narrative: Lying comfortably in bed in no acute distress. Alert oriented x3 remains afebrile with no tachycardia. Normal blood pressure adequate urine output abdomen remains markedly distended and tympanitic. Few hypoactive tinkling bowel sounds throughout. He is diffusely mildly tender to palpation but certainly without guarding or rebound. No masses. extremities show no clubbing or cyanosis Objective Labs Result Diagrams: 04/20/18 11:05 04/20/18 11:05 Labs: Laboratory Results - last 24 hr 04/20/18 04/20/18 04/20/18 11:05 11:05 11:05 WBC 6.2 RBC 3.79 L Hgb 11.6 L Hct 34.2 L MCV 90.4 MCH 30.7 MCHC 34.0 RDW 12.4 Plt Count 170 Neut % (Auto) 68.0 Lymph % (Auto) 18.6 L [place] % (Auto) 9.0 Eos % (Auto) 3.9 Baso % (Auto) 0.5 Neut # (Auto) 4200 Lymph # (Auto) 1100 [place] # (Auto) 600 Eos # (Auto) 200 Baso # (Auto) 0 Sodium 133 L Potassium 4.0 Chloride 96 L Carbon Dioxide 30 BUN 11 Creatinine 0.80 Estimated GFR > 60.0 BUN/Creatinine Ratio 13.8 Glucose 97 Calcium 8.2 L Magnesium Total Bilirubin 1.0 AST 36 ALT 40 Alkaline Phosphatase 37 L Total Protein 6.1 L Albumin 3.3 L Globulin 2.8 Albumin/Globulin Ratio 1.2 Lipase 45 04/20/18 11:05 WBC RBC Hgb Hct MCV MCH MCHC RDW Plt Count Neut % (Auto) Lymph % (Auto) [place] % (Auto) Eos % (Auto) Baso % (Auto) Neut # (Auto) Lymph # (Auto) [place] # (Auto) Eos # (Auto) Baso # (Auto) Sodium Potassium Chloride Carbon Dioxide BUN Creatinine Estimated GFR BUN/Creatinine Ratio Glucose Calcium Magnesium 2.2 Total Bilirubin AST ALT Alkaline Phosphatase Total Protein Albumin Globulin Albumin/Globulin Ratio Lipase no new laboratory or radiographic studies for review today Assessment & Plan Assessment & Plan narrative: 62-year-old male status post lumbar spine surgery with postoperative colonic ileus. He is currently stable but remains distended. Continue aggressive bowel regimen. Suspect he may require even a rectal suppository and/ or enema therapy if current cathartic laxatives are not completely effective. He has no indication for surgical or endoscopic intervention at this time. Will continue to follow, but I am encouraged that he is beginning to pass some flatus and liquid stool. I suspect this may take several more days to improve significantly. I discussed this with him today. All questions were answered to his satisfaction, and he voiced understanding. Quality VTE Deep Vein Thrombosis/Pulmonary Embolism Present on Admission: No
--- NOTE | 2018-04-21 10:50 | CM.DPC ---
DCP Cont: Per Surgeon Consult, pt making some progress and no surgical intervention needed at this time and pt likely will need another couple days to stabilize before ready for discharge home. Per RN, pt ambulating hallways and still on clear liquid diet at this time. Per PT, likely safe for d/c home with spouse mobility-rose. SW met bedside with pt and explained role again and pt confirms that his plans to take a few days off work to be available for assist when pt ready for d/c home. Pt starting to feel less uncomfortable and able to ambulate fairly well but notices with his limited diet he is below baseline and feeling somewhat weak but anticipates as his diet progresses he will feel stronger. Pt and his work at baseline and pt plans to take at least another week off of work. Pt preference is home with when stable and currently does not anticipate any SW needs. Plan: SW to follow closely as pt's diet progresses to confirm he is safe for d/c home with spouse assist when stable. SW to follow for any further identified discharge planning needs. QASIM Parker
[2018-04-21] MEDS: BISACODYL 10 MG SUPP PR (11:33)
[2018-04-21 11:53] VITALS: BP 127/74; PULSE 76; RESP 15; O2SAT 94
[2018-04-21] MEDS: METOCLOPRAMIDE HCL 10 MG TABLET PO ×2 (12:11→23:45)
[2018-04-21] MEDS: MAGNESIUM HYDROXIDE 30 ML UDC PO (12:50)
[2018-04-21 17:52] VITALS: BP 135/75; PULSE 85; RESP 18; TEMP 36.6; O2SAT 96
[2018-04-21] MEDS: SENNOSIDES 8.6 MG TABLET 17.2 MG PO (20:54)
[2018-04-21] MEDS: GABAPENTIN 300 MG CAPSULE PO (20:55)
[2018-04-21] MEDS: ACETAMINOPHEN 325 MG TABLET 975 MG PO (21:14)
[2018-04-21 21:25] VITALS: BP 128/83; PULSE 84; RESP 20; TEMP 36.7; O2SAT 96
--- NOTE | 2018-04-21 22:21 | PC.NURSE ---
Evening notes: Emiliaon has ambulated hallways x 3 tonight, gait steady & he is ambulating independently with FWW. Abdomen still distended, BT hyperactive. He has had 3-4 stools tonight, passing [id number] amt of liquid brown stool, some small particles observed in toilet. Dose #2 of Lactulose given, as well as scheduled Miralax, senna & DOS. Reports back/left hip pain 05/15, requested TYlenol instead of Oxycodone, I notified Dr Garcia and he said patient can take up to 1000 mg TYlenol q6h prn for pain. VS stable. RA O2 94%, bases diminished, he refused to use his IS, saying I don't want that. Instructed deep breathing 10 x's per hour if does not want to use IS. Denies nausea, tolerating clear liquids although he refuses everything except for tea, popsicles & water. I provided clear ensure which he drank, teaching given regarding need for protein post-surgery. Allevyn which was covering blister area to right back rolled off, sero-sang observed on linen. Lower cover site adhesive also rolling off. I cleaned blister site with sterile saline, then applied new allevyn gentle border and replaced the distal cover site with new cover site. Pt denies further needs or questions tonight. Instructed to call if needs help ambulating or has any concerns at all.
[2018-04-21 23:35] VITALS: BP 131/85; PULSE 77; RESP 16; TEMP 36.8; O2SAT 93
[2018-04-22] MEDS: ACETAMINOPHEN 325 MG TABLET 975 MG PO ×2 (05:04→14:23)
[2018-04-22 05:05] VITALS: BP 147/91; PULSE 66; RESP 16; TEMP 36.7; O2SAT 96
[2018-04-22] MEDS: PANTOPRAZOLE 40 MG TABLET PO (05:05)
--- NOTE | 2018-04-22 05:35 | PC.NURSE ---
Pt is AxOx3, doing well. Minimal pain, controlled with Tylenol given once in morning. Reglan given q6h PRN. Pt states he had a few liquid BMs on evening shift. Bowel tones active, abdomen distended.
--- NOTE | 2018-04-22 07:32 | PM.PNPO.1 ---
Subjective Date Patient Seen: 04/22/18 Time Patient Seen: 07:32 Interval history: He is doing much better. He has been passing some loose stools. No longer feels so distended. He has switched over to just Tylenol for pain medication. Exam Vital Signs (past 8 hours): - 04/21/18 23:35 04/22/18 05:05 Temperature 98.3 F 98.1 F Pulse Rate 77 66 Respiratory Rate 16 16 Blood Pressure 131/85 147/91 H Pulse Oximetry 93 96 Fraction of Inspired Oxygen 21 Oxygen Delivery Method Room Air Oxygen Flow Rate 0 Const Orientation: alert and oriented x3 GI Other: Moderately distended, but no tension. Soft to compression. Loud positive bowel sounds. Back/Spine/Pelvis Other: CDI Objective Labs Result Diagrams: 04/20/18 11:05 04/20/18 11:05 Assessment & Plan Post-op Postoperative Procedures Operation Date: 04/16/18 10:15 Actual Procedures Side Surgeon p L2-3,L3-4,L4-5 laminectomies,L3-4,L4-5 anterior/posterior instru fusion (XLIF) w/bone graft Michael Garcia MD he is finally getting over his colonic ileus. Continue to mobilize with physical therapy. Anticipate discharge home today if he is tolerating a regular diet. Quality VTE Deep Vein Thrombosis/Pulmonary Embolism Present on Admission: No
--- NOTE | 2018-04-22 07:33 | PM.DS.1 ---
History of Present Illness Date Patient Seen: 04/22/18 Time Patient Seen: 07:33 Chief complaint: lumbar/codes in [facility] notes Narrative: 62-year-old male with pain in the back and radiation into the legs. Failed conservative management with medication, physical therapy, and epidural injections. He has a previous history of an L3-4 laminectomy in 2014. Discharge Providers Date of admission: 04/16/18 08:17 Discharge Date: 04/22/18 Primary care physician: Reynold Sargent MD Consults: 04/16/18 16:53 Consult to Occupational Therapy Evaluate & Treat Comment: Physician Instructions: Evaluate and treat Consult to Physical Therapy Evaluate & Treat Comment: Physician Instructions: Evaluate and Treat 04/20/18 09:47 Consult to Physician Routine Comment: Consulting Provider: Piyush De Luna Reason for consultation: po ileus.Had retroperiton. L2-3 to L4-5 fusion. Has been on clear liq, Has provider been notified: Yes Discharge provider: Michael Garcia MD Summary Discharge Diagnosis: Lumbar stenosis with radiculopathy Lumbar scoliosis Hospital Course: He was admitted to the hospital on 04/16/2018 where he underwent an L1 through 3 laminectomy and instrumented fusion. Initially he did well postoperatively but began having significant abdominal distention and discomfort. He was found to have a colonic ileus. A general surgery consultation was obtained as this did not seem to be improving with just medication. No surgery was indicated but just continued conservative management with medication. Finally, on 04/15/2018 he began having relief of his abdominal distension and ileus. He switched over from narcotic pain medication to Tylenol and that also helped as well. He was no longer having the severe back spasms like he was when he was distended. It is felt that he was stable for discharge by 04/22/2018. Exam Vital Signs (past 8 hours): - 04/21/18 23:35 04/22/18 05:05 Temperature 98.3 F 98.1 F Pulse Rate 77 66 Respiratory Rate 16 16 Blood Pressure 131/85 147/91 H Pulse Oximetry 93 96 Fraction of Inspired Oxygen 21 Oxygen Delivery Method Room Air Oxygen Flow Rate 0 Const Orientation: alert and oriented x3 GI Other: Mild distension, soft to palpation. Positive bowel sounds. Back/Spine/Pelvis Other: CDI. 5/5 motor both lower extremities. Objective Labs Result Diagrams: 04/20/18 11:05 04/20/18 11:05 Discharge Plan Discharge Plan Patient Disposition: Home Discharge comment: f/u 1 wk Discharge Med Rec/Prescriptions Prescriptions: New hydroxyzine pamoate 25 mg Capsule 25 mg PO Q4HR PRN (Reason: spasms) Qty: 20 RF: 0 docusate sodium 100 mg Capsule 100 mg PO BID PRN (Reason: constipation) Qty: 40 RF: 0 celecoxib 200 mg capsule 200 mg PO BID PRN (Reason: pain) Qty: 60 RF: 0 oxycodone 5 mg capsule 5 mg PO Q4HR PRN (Reason: pain) Qty: 10 RF: 0 Continued lisinopril 20 mg Tablet 20 mg PO DAILY RF: 0 omeprazole 40 mg Capsule,Delayed Release(Dr/Ec) 40 mg PO DAILY RF: 0 albuterol sulfate 90 mcg/actuation Hfa Aerosol Inhaler 2 puff INHALATION Q4-6H PRN (Reason: Shortness Of Breath) RF: 0 tadalafil [Cialis] 5 mg Tablet 5 mg PO DAILY PRN (Reason: Sexual Activity) RF: 0 acetaminophen [Tylenol Extra Strength] 500 mg Tablet 1,000 mg PO Q6H PRN (Reason: pain) RF: 0 Discontinued ibuprofen [Advil] 200 mg Tablet 400 mg PO BEDTIME PRN (Reason: pain) RF: 0 Follow up/Referrals: Reynold Sargent MD [Primary Care Provider] - Provider Discharge Instructions Diet: Diet as Tolerated Activity: limited BLT 10 lbs max Skin/Wound/Dressing Care Report to your healthcare provider any signs of infection, such as:: chills, fever, night sweats, increased pain, unusual drainage and unusual redness Dressing: may change dressing and shower prn Visit Report/Discharge Packet Instructions: DI for Laminectomy, DI for Lateral Lumbar Interbody Fusion Stand Alone Forms: Surgery Discharge Discharge Data Primary Care Provider: Reynold Sargent Attending Provider: Michael Garcia Admit Date/Time: 04/16/18 08:17 Quality VTE Deep Vein Thrombosis/Pulmonary Embolism Present on Admission: No
[2018-04-22 07:55] VITALS: BP 141/91; PULSE 74; RESP 18; TEMP 36.3; O2SAT 93
[2018-04-22] MEDS: LISINOPRIL 20 MG TABLET PO (08:20)
[2018-04-22] MEDS: CELECOXIB 200 MG CAPSULE PO (08:20)
[2018-04-22] MEDS: POLYETHYLENE GLYCOL 3350 17 GM POWD.PACK PO (08:20)
[2018-04-22] MEDS: DOCUSATE 100 MG CAPSULE PO (08:21)
[2018-04-22] MEDS: hydrOXYzine pamoate 25 MG CAPSULE PO ×2 (08:21→14:23)
[2018-04-22] MEDS: METOCLOPRAMIDE HCL 10 MG TABLET PO (08:22)
[2018-04-22 08:27] VITALS: O2SAT 97
--- NOTE | 2018-04-22 14:55 | PC.NURSE ---
Discharge Pt states pain controlled with tylenol and vistaril. Declines oxycodone. D/c instructions provided to pt and . Aware of f/u apt with ortho and also to make apt with PCP. aware to contact MD with any additional questions or concerns. pt left with all belongings including new Rx. Pt left in w/c with [employer] escort.
== END 2018-04-22 14:35 | disposition home or self-care (01) | DRG 454 ==
PROVIDERS: Surgery; Admitting Provider Orthopaedic Surgery; PCP Family Medicine; Visit Provider Orthopaedic Surgery
PROC: 0SG00A0 Fusion of Lumbar Vertebral Joint with Interbody Fusion Device, Anterior Approach, Anterior Column, Open Approach (ICD-10-PCS; CPT 22558; principal; 2018-04-16 10:15)
DX: M48.062 Spinal stenosis, lumbar region with neurogenic claudication (principal); K56.7 Ileus, unspecified; M51.36 Other intervertebral disc degeneration, lumbar region; I10 Essential (primary) hypertension; J45.909 Unspecified asthma, uncomplicated; M41.26 Other idiopathic scoliosis, lumbar region
CPT/HCPCS: 36415; 72100; 74018; 74021; 76000; 80053; 83690; 83735; 85014; 85018; 85025; 94760; 94762; 97116; 97161; 97165; 97530; 97535; 99232; 99233; C1776; J0330; J0595; J0690; J1100; J1170; J2060; J2250; J2274; J2405; J2704; J2765; J3010; J3370